=== PATIENT | male | born 1940 | race African-American/Black ===

== ENCOUNTER 2021-09-26 13:35 | Inpatient (IN) ==
[2021-09-26] MEDS ORDERED: ACETAMINOPHEN 325 MG TABLET PO PRN ×2 (13:44→13:50)
[2021-09-26] MEDS ORDERED: ONDANSETRON 4 MG/2 ML VIAL IV PRN ×2 (13:44→13:50)
[2021-09-26] MEDS ORDERED: PANTOPRAZOLE 40 MG VIAL IV STA (13:47)
[2021-09-26] MEDS ORDERED: IMMUNE GLOBULIN 10% 20 GM, IMMUNE GLOBULIN 10% 10 GM in PREMIX 1 EACH IV ONE (13:48)
[2021-09-26] MEDS ORDERED: SODIUM CHLORIDE 0.9% 1,000 ML IV PRN ×2 (13:48→16:11)
[2021-09-26] MEDS ORDERED: methylPREDNISolone SOD SUC 125 MG/2 ML VIAL IV STA (13:48)
[2021-09-26 15:00] LABS: Albumin 2.3 G/DL (3.4-5.0); Bilirubin,Total 1.1 MG/DL (0.20-1.00); Calcium 7.7 MG/DL (8.5-10.1); Osmolality,Calculated 285.5 MOS/KG (273-304); Potassium 4.4 MMOL/L (3.5-5.1); Total Protein 4.5 G/DL (6.4-8.2)
[2021-09-26] MEDS: SODIUM CHLORIDE 0.9% 1,000 ML IV SCH (15:24)
[2021-09-26] MEDS ORDERED: methylPREDNISolone SOD SUC 125 MG/2 ML VIAL IV ONE (16:20)
[2021-09-26] MEDS ORDERED: DOCUSATE SODIUM 100 MG CAPSULE PO SCH (21:00)
[2021-09-26] MEDS: DOCUSATE SODIUM 100 MG CAPSULE PO SCH (21:23)
[2021-09-27] MEDS ORDERED: methylPREDNISolone SOD SUC 125 MG/2 ML VIAL ONE (05:03)
[2021-09-27] MEDS ORDERED: methylPREDNISolone SOD SUC 125 MG/2 ML VIAL IV ONE (05:40)
[2021-09-27] MEDS: PANTOPRAZOLE 40 MG TABLET PO SCH (08:25)
[2021-09-27] MEDS: MULTIVITAMIN (CENTRUM) TABLET PO SCH (08:25)
[2021-09-27] MEDS: FERROUS SULFATE 325 MG TABLET PO SCH (08:26)
[2021-09-27] MEDS: DOCUSATE SODIUM 100 MG CAPSULE PO SCH ×2 (08:26→21:29)
[2021-09-27 16:07] LABS: Basophils % 0.1 % (0.0-0.8); Hematocrit 21.3 VOL% (42.0-52.0); Hemoglobin 6.9 GM/DL (14.0-18.0); Immature Granulocytes % 1.6 %; Immature Granulocytes Absolute 0.38 #; Lymphocytes # 4.3 10*3/uL (1.4-4.0); Lymphocytes % 18.2 % (21.2-54.2); Mean Corpuscular HGB Conc 32.4 GM/DL (32-36); Mean Corpuscular Volume 94.7 FL (87-102); NRBC # 0.05 10*3/uL; Neutrophils % 77.1 % (38.7-73.9); Red Blood Count 2.25 MC/CUMM (3.8-5.5); Red Cell Distribution Width 17.9 % (9.3-17.3); White Blood Count 23.6 T/CUMM (4-12)
[2021-09-27 16:13] LABS: Platelet Count 0 T/CUMM (130-400)
[2021-09-27 16:28] LABS: Calcium 7.6 MG/DL (8.5-10.1); Osmolality,Calculated 296.3 MOS/KG (273-304); Potassium 3.5 MMOL/L (3.5-5.1)
[2021-09-27 17:26] LABS: Lymphocytes 11 % (20-55); Segmented Neutrophils 88 % (50-85); Total Cells Counted 100
[2021-09-27 17:27] LABS: Anisocytosis 1+
[2021-09-27 17:28] LABS: Hypochromia Slight; Ovalocytes Slight
[2021-09-27 17:29] LABS: Atypical Lymphocytes Few; Platelet Estimate Decreased
[2021-09-27] MEDS: SODIUM CHLORIDE 0.9% 1,000 ML IV SCH ×3 (18:03→22:55)
[2021-09-27] MEDS: BIMATOPROST 0.01% OPH SOLN 2.5 ML BOTTLE LEFT EYE SCH ×2 (18:03→21:13)
[2021-09-27] MEDS: BRIMONIDINE 0.2% OPH SOLN 5 ML BOTTLE LEFT EYE SCH ×2 (18:03→21:13)
[2021-09-27] MEDS: DORZOLAMIDE 2% OPH SOLN 10 ML BOTTLE LEFT EYE SCH ×2 (18:04→21:12)
[2021-09-27] MEDS ORDERED: SODIUM CHLORIDE 0.9% 1,000 ML IV PRN (19:01)
[2021-09-27] MEDS ORDERED: IMMUNE GLOBULIN 10% 20 GM, IMMUNE GLOBULIN 10% 10 GM in PREMIX 1 EACH IV ONE (21:00)
[2021-09-27] MEDS: methylPREDNISolone SOD SUC 125 MG/2 ML VIAL IV SCH (21:12)
[2021-09-28] MEDS: SODIUM CHLORIDE 0.9% 1,000 ML IV SCH ×3 (07:10→22:12)
[2021-09-28 08:41] LABS: Basophils % 0.1 % (0.0-0.8); Hematocrit 24.8 VOL% (42.0-52.0); Hemoglobin 8.4 GM/DL (14.0-18.0); Immature Granulocytes Absolute 0.22 #; Lymphocytes # 5.6 10*3/uL (1.4-4.0); Lymphocytes % 24.8 % (21.2-54.2); Mean Corpuscular HGB Conc 33.9 GM/DL (32-36); Mean Corpuscular Volume 95.8 FL (87-102); Monocytes % 2.9 % (1.7-12.7); NRBC # 0.06 10*3/uL; Neutrophils % 71.2 % (38.7-73.9); Red Blood Count 2.59 MC/CUMM (3.8-5.5); Red Cell Distribution Width 16.7 % (9.3-17.3); White Blood Count 22.6 T/CUMM (4-12)
[2021-09-28 08:49] LABS: Platelet Count 1 T/CUMM (130-400)
[2021-09-28] MEDS ORDERED: predniSONE 20 MG TABLET PO SCH (09:00)
[2021-09-28] MEDS: FERROUS SULFATE 325 MG TABLET PO SCH (09:05)
[2021-09-28] MEDS: PANTOPRAZOLE 40 MG TABLET PO SCH (09:05)
[2021-09-28] MEDS: MULTIVITAMIN (CENTRUM) TABLET PO SCH (09:05)
[2021-09-28] MEDS: methylPREDNISolone SOD SUC 125 MG/2 ML VIAL IV SCH ×2 (09:05→21:34)
[2021-09-28] MEDS: DOCUSATE SODIUM 100 MG CAPSULE PO SCH ×2 (09:06→20:53)
[2021-09-28 09:11] LABS: Smudge Cells Few
[2021-09-28 09:13] LABS: Band Neutrophils 9 % (0-10); Lymphocytes 20 % (20-55); Segmented Neutrophils 68 % (50-85); Total Cells Counted 100
[2021-09-28 09:15] LABS: Anisocytosis 2+; Macrocytosis Slight; Tear Drop Cells Few
[2021-09-28] MEDS ORDERED: diphenhydrAMINE 50 MG/1 ML VIAL IV ONE (10:42)
[2021-09-28] MEDS ORDERED: FAMOTIDINE 20 MG/2 ML VIAL IV ONE (10:42)
[2021-09-28] MEDS ORDERED: ACETAMINOPHEN 325 MG TABLET PO ONE (10:43)
[2021-09-28] MEDS ORDERED: DEXAMETHASONE INJ 20 MG in SODIUM CHLORIDE 0.9% 50 ML IV ONE (10:43)
[2021-09-28] MEDS: DORZOLAMIDE 2% OPH SOLN 10 ML BOTTLE LEFT EYE SCH ×3 (10:51→21:32)
[2021-09-28] MEDS: BRIMONIDINE 0.2% OPH SOLN 5 ML BOTTLE LEFT EYE SCH ×2 (10:51→21:32)
[2021-09-28] MEDS ORDERED: riTUXimab 750 MG in SODIUM CHLORIDE 0.9% 675 ML IV ONE (13:45)
[2021-09-28] MEDS ORDERED: RITUXIMAB-ABBS 500 MG, RITUXIMAB-ABBS 250 MG in SODIUM CHLORIDE 0.9% 675 ML IV ONE (14:15)
[2021-09-28] MEDS ORDERED: SODIUM CHLORIDE 0.9% 1,000 ML IV PRN (15:20)
[2021-09-28 16:41] LABS: Hematocrit 25.3 VOL% (42.0-52.0); Hemoglobin 8.4 GM/DL (14.0-18.0); Immature Granulocytes Absolute 0.22 #; Lymphocytes # 5.4 10*3/uL (1.4-4.0); Lymphocytes % 25.2 % (21.2-54.2); Mean Corpuscular HGB Conc 33.2 GM/DL (32-36); Mean Corpuscular Volume 95.1 FL (87-102); Monocytes % 2.2 % (1.7-12.7); NRBC # 0.06 10*3/uL; Neutrophils % 71.6 % (38.7-73.9); Red Blood Count 2.66 MC/CUMM (3.8-5.5); Red Cell Distribution Width 17.1 % (9.3-17.3); White Blood Count 21.5 T/CUMM (4-12)
[2021-09-28 16:47] LABS: Platelet Count 1 T/CUMM (130-400)
[2021-09-28 19:28] LABS: Band Neutrophils 1 % (0-10); Lymphocytes 11 % (20-55); Platelet Estimate Decreased; Segmented Neutrophils 87 % (50-85); Total Cells Counted 100
[2021-09-28 19:29] LABS: Atypical Lymphocytes Few; Macrocytosis 1+; Smudge Cells Few
[2021-09-28] MEDS: BIMATOPROST 0.01% OPH SOLN 2.5 ML BOTTLE LEFT EYE SCH (21:32)
[2021-09-29] MEDS: SODIUM CHLORIDE 0.9% 1,000 ML IV SCH ×3 (05:18→22:58)
[2021-09-29 07:19] LABS: Basophils % 0.1 % (0.0-0.8); Hematocrit 20.8 VOL% (42.0-52.0); Hemoglobin 6.9 GM/DL (14.0-18.0); Immature Granulocytes Absolute 0.15 #; Lymphocytes # 2.6 10*3/uL (1.4-4.0); Lymphocytes % 17.7 % (21.2-54.2); Mean Corpuscular HGB Conc 33.2 GM/DL (32-36); Mean Corpuscular Volume 96.3 FL (87-102); Monocytes % 2.9 % (1.7-12.7); NRBC # 0.03 10*3/uL; Neutrophils % 78.3 % (38.7-73.9); Red Blood Count 2.16 MC/CUMM (3.8-5.5); Red Cell Distribution Width 17.2 % (9.3-17.3); White Blood Count 14.5 T/CUMM (4-12)
[2021-09-29 07:20] LABS: Platelet Count 0 T/CUMM (130-400)
[2021-09-29 07:46] LABS: Albumin 1.8 G/DL (3.4-5.0); Bilirubin,Total 1.3 MG/DL (0.20-1.00); Calcium 7.4 MG/DL (8.5-10.1); Osmolality,Calculated 297.7 MOS/KG (273-304); Potassium 3.8 MMOL/L (3.5-5.1); Total Protein 4.9 G/DL (6.4-8.2)
[2021-09-29 08:00] LABS: Platelet Estimate Decreased; Tear Drop Cells Few
[2021-09-29 08:01] LABS: Anisocytosis 2+; Ovalocytes Few
[2021-09-29] MEDS ORDERED: IMMUNE GLOBULIN 10% 40 GM in PREMIX 1 EACH IV ONE (10:14)
[2021-09-29] MEDS: BRIMONIDINE 0.2% OPH SOLN 5 ML BOTTLE LEFT EYE SCH ×2 (11:00→21:48)
[2021-09-29] MEDS: FERROUS SULFATE 325 MG TABLET PO SCH (11:01)
[2021-09-29] MEDS: MULTIVITAMIN (CENTRUM) TABLET PO SCH (11:01)
[2021-09-29] MEDS: IMMUNE GLOBULIN 10% 20 GM, IMMUNE GLOBULIN 10% 10 GM in PREMIX 1 EACH IV SCH (11:01)
[2021-09-29] MEDS: DOCUSATE SODIUM 100 MG CAPSULE PO SCH ×2 (11:01→21:44)
[2021-09-29] MEDS: PANTOPRAZOLE 40 MG TABLET PO SCH (11:01)
[2021-09-29] MEDS: DORZOLAMIDE 2% OPH SOLN 10 ML BOTTLE LEFT EYE SCH ×3 (11:02→21:49)
[2021-09-29] MEDS: methylPREDNISolone SOD SUC 125 MG/2 ML VIAL IV SCH ×2 (12:19→18:07)
[2021-09-29] MEDS ORDERED: ALBUTEROL/IPRATROPIUM 3 ML NEB RESP TX PRN (13:10)
[2021-09-29] MEDS: TRANEXAMIC ACID 1,000 MG in SODIUM CHLORIDE 0.9% 100 ML IV SCH ×2 (14:45→23:05)
[2021-09-29] MEDS ORDERED: SODIUM CHLORIDE 0.9% 1,000 ML IV PRN (18:05)
[2021-09-29] MEDS: AZITHROMYCIN INJ 500 MG in SODIUM CHLORIDE 0.9% 250 ML IV SCH (18:07)
[2021-09-29] MEDS: cefTRIAXone 1,000 MG in SODIUM CHLORIDE 0.9% 100 ML IV SCH (21:40)
[2021-09-29] MEDS: BIMATOPROST 0.01% OPH SOLN 2.5 ML BOTTLE LEFT EYE SCH (21:47)
[2021-09-30] MEDS: methylPREDNISolone SOD SUC 125 MG/2 ML VIAL IV SCH ×4 (04:02→18:16)
[2021-09-30] MEDS ORDERED: SODIUM CHLORIDE 0.9% 1,000 ML IV PRN (08:31)
[2021-09-30] MEDS: TRANEXAMIC ACID 1,000 MG in SODIUM CHLORIDE 0.9% 100 ML IV SCH ×2 (09:33→17:39)
[2021-09-30] MEDS: PANTOPRAZOLE 40 MG TABLET PO SCH (09:35)
[2021-09-30] MEDS: FERROUS SULFATE 325 MG TABLET PO SCH (09:35)
[2021-09-30] MEDS: DOCUSATE SODIUM 100 MG CAPSULE PO SCH ×2 (09:35→21:02)
[2021-09-30] MEDS: MULTIVITAMIN (CENTRUM) TABLET PO SCH (09:35)
[2021-09-30] MEDS: SODIUM CHLORIDE 0.9% 1,000 ML IV SCH ×2 (09:36→14:57)
[2021-09-30] MEDS: IMMUNE GLOBULIN 10% 20 GM, IMMUNE GLOBULIN 10% 10 GM in PREMIX 1 EACH IV SCH (09:41)
[2021-09-30] MEDS: BRIMONIDINE 0.2% OPH SOLN 5 ML BOTTLE LEFT EYE SCH ×2 (09:53→21:01)
[2021-09-30] MEDS: DORZOLAMIDE 2% OPH SOLN 10 ML BOTTLE LEFT EYE SCH ×3 (09:54→21:02)
[2021-09-30 11:40] LABS: Albumin 1.6 G/DL (3.4-5.0); Bilirubin,Total 0.8 MG/DL (0.20-1.00); Calcium 7.2 MG/DL (8.5-10.1); Osmolality,Calculated 299.8 MOS/KG (273-304); Total Protein 5.1 G/DL (6.4-8.2)
[2021-09-30 11:51] LABS: Basophils % 0.1 % (0.0-0.8); Hemoglobin 6.8 GM/DL (14.0-18.0); Immature Granulocytes Absolute 0.15 #; Lymphocytes # 1.4 10*3/uL (1.4-4.0); Lymphocytes % 9.5 % (21.2-54.2); Mean Corpuscular HGB Conc 32.4 GM/DL (32-36); Monocytes % 1.7 % (1.7-12.7); NRBC # 0.04 10*3/uL; Neutrophils % 87.7 % (38.7-73.9); Red Blood Count 2.21 MC/CUMM (3.8-5.5); Red Cell Distribution Width 17.2 % (9.3-17.3); White Blood Count 14.7 T/CUMM (4-12)
[2021-09-30 11:55] LABS: Platelet Count 1 T/CUMM (130-400)
[2021-09-30 12:32] LABS: Anisocytosis 1+; Band Neutrophils 1 % (0-10); Hypochromia Slight; Lymphocytes 4 % (20-55); Metamyelocytes 1 %; Microcytosis 1+; Ovalocytes Slight; Segmented Neutrophils 93 % (50-85); Total Cells Counted 100
[2021-09-30 12:33] LABS: Platelet Estimate Decreased; Spherocytes Slight
[2021-09-30] MEDS: AZITHROMYCIN INJ 500 MG in SODIUM CHLORIDE 0.9% 250 ML IV SCH (17:08)
[2021-09-30] MEDS: cefTRIAXone 1,000 MG in SODIUM CHLORIDE 0.9% 100 ML IV SCH (21:01)
[2021-09-30] MEDS: BIMATOPROST 0.01% OPH SOLN 2.5 ML BOTTLE LEFT EYE SCH (21:02)
[2021-10-01] MEDS: TRANEXAMIC ACID 1,000 MG in SODIUM CHLORIDE 0.9% 100 ML IV SCH ×3 (02:29→19:43)
[2021-10-01] MEDS: methylPREDNISolone SOD SUC 125 MG/2 ML VIAL IV SCH ×3 (02:32→20:38)
[2021-10-01] MEDS ORDERED: cloNIDine 0.1 MG TABLET PO ONE (05:40)
[2021-10-01] MEDS ORDERED: amLODIPine 5 MG TABLET PO ONE (06:57)
[2021-10-01 07:59] LABS: Basophils % 0.1 % (0.0-0.8); Hematocrit 29.5 VOL% (42.0-52.0); Immature Granulocytes % 1.1 %; Immature Granulocytes Absolute 0.16 #; Lymphocytes # 2.5 10*3/uL (1.4-4.0); Lymphocytes % 17.2 % (21.2-54.2); Mean Corpuscular HGB Conc 32.9 GM/DL (32-36); Mean Corpuscular Volume 92.8 FL (87-102); NRBC # 0.05 10*3/uL; Neutrophils % 77.6 % (38.7-73.9); Red Cell Distribution Width 15.9 % (9.3-17.3); White Blood Count 14.6 T/CUMM (4-12)
[2021-10-01 08:01] LABS: Red Blood Count 3.18 MC/CUMM (3.8-5.5)
[2021-10-01 08:02] LABS: Hemoglobin 9.7 GM/DL (14.0-18.0)
[2021-10-01 08:03] LABS: Platelet Count 1 T/CUMM (130-400)
[2021-10-01 08:17] LABS: Albumin 1.7 G/DL (3.4-5.0); Bilirubin,Total 0.8 MG/DL (0.20-1.00); Calcium 7.6 MG/DL (8.5-10.1); Potassium 3.7 MMOL/L (3.5-5.1); Total Protein 5.8 G/DL (6.4-8.2)
[2021-10-01 08:31] LABS: Hypochromia 1+; Microcytosis 1+; Platelet Estimate Decreased
[2021-10-01] MEDS ORDERED: romiPLOStim 125 MCG VIAL SUBCUT ONE (09:00)
[2021-10-01] MEDS: MULTIVITAMIN (CENTRUM) TABLET PO SCH (09:23)
[2021-10-01] MEDS: SODIUM CHLORIDE 0.9% 1,000 ML IV SCH ×3 (09:23→19:34)
[2021-10-01] MEDS: PANTOPRAZOLE 40 MG TABLET PO SCH (09:23)
[2021-10-01] MEDS: FERROUS SULFATE 325 MG TABLET PO SCH (09:23)
[2021-10-01] MEDS: BRIMONIDINE 0.2% OPH SOLN 5 ML BOTTLE LEFT EYE SCH ×2 (09:24→20:40)
[2021-10-01] MEDS: DORZOLAMIDE 2% OPH SOLN 10 ML BOTTLE LEFT EYE SCH ×3 (09:25→20:40)
[2021-10-01] MEDS: DOCUSATE SODIUM 100 MG CAPSULE PO SCH ×2 (09:25→20:33)
[2021-10-01] MEDS: AZITHROMYCIN INJ 500 MG in SODIUM CHLORIDE 0.9% 250 ML IV SCH (17:34)
[2021-10-01] MEDS: BIMATOPROST 0.01% OPH SOLN 2.5 ML BOTTLE LEFT EYE SCH (20:39)
[2021-10-01] MEDS: cefTRIAXone 1,000 MG in SODIUM CHLORIDE 0.9% 100 ML IV SCH (20:40)
[2021-10-02] MEDS: methylPREDNISolone SOD SUC 125 MG/2 ML VIAL IV SCH ×3 (02:34→20:30)
[2021-10-02] MEDS: SODIUM CHLORIDE 0.9% 1,000 ML IV SCH ×4 (03:54→20:26)
[2021-10-02] MEDS: TRANEXAMIC ACID 1,000 MG in SODIUM CHLORIDE 0.9% 100 ML IV SCH ×2 (05:11→13:11)
[2021-10-02 05:38] LABS: Basophils % 0.1 % (0.0-0.8); Hematocrit 32.5 VOL% (42.0-52.0); Hemoglobin 10.7 GM/DL (14.0-18.0); Immature Granulocytes % 1.2 %; Immature Granulocytes Absolute 0.15 #; Lymphocytes # 2.9 10*3/uL (1.4-4.0); Lymphocytes % 23.9 % (21.2-54.2); Mean Corpuscular HGB Conc 32.9 GM/DL (32-36); Mean Corpuscular Volume 94.2 FL (87-102); Monocytes % 2.7 % (1.7-12.7); NRBC # 0.08 10*3/uL; Neutrophils % 72.1 % (38.7-73.9); Red Blood Count 3.45 MC/CUMM (3.8-5.5); Red Cell Distribution Width 16.1 % (9.3-17.3)
[2021-10-02 05:49] LABS: Platelet Count 1 T/CUMM (130-400)
[2021-10-02 05:57] LABS: Hypochromia 1+; Microcytosis 1+; Ovalocytes Slight; Tear Drop Cells Slight
[2021-10-02 05:58] LABS: Platelet Estimate Decreased
[2021-10-02 06:00] LABS: Albumin 1.9 G/DL (3.4-5.0); Bilirubin,Total 1.2 MG/DL (0.20-1.00); Calcium 7.4 MG/DL (8.5-10.1); Osmolality,Calculated 293.8 MOS/KG (273-304); Potassium 3.8 MMOL/L (3.5-5.1); Total Protein 5.7 G/DL (6.4-8.2)
[2021-10-02] MEDS: FERROUS SULFATE 325 MG TABLET PO SCH (09:29)
[2021-10-02] MEDS: PANTOPRAZOLE 40 MG TABLET PO SCH (09:29)
[2021-10-02] MEDS: MULTIVITAMIN (CENTRUM) TABLET PO SCH (09:29)
[2021-10-02] MEDS: BRIMONIDINE 0.2% OPH SOLN 5 ML BOTTLE LEFT EYE SCH ×2 (09:30→20:32)
[2021-10-02] MEDS: DOCUSATE SODIUM 100 MG CAPSULE PO SCH ×2 (09:30→20:28)
[2021-10-02] MEDS: DORZOLAMIDE 2% OPH SOLN 10 ML BOTTLE LEFT EYE SCH ×3 (10:33→20:32)
[2021-10-02] MEDS: AZITHROMYCIN INJ 500 MG in SODIUM CHLORIDE 0.9% 250 ML IV SCH (17:11)
[2021-10-02] MEDS: cefTRIAXone 1,000 MG in SODIUM CHLORIDE 0.9% 100 ML IV SCH (20:31)
[2021-10-02] MEDS: BIMATOPROST 0.01% OPH SOLN 2.5 ML BOTTLE LEFT EYE SCH (20:32)
[2021-10-03] MEDS: TRANEXAMIC ACID 1,000 MG in SODIUM CHLORIDE 0.9% 100 ML IV SCH ×4 (00:45→20:17)
[2021-10-03] MEDS: SODIUM CHLORIDE 0.9% 1,000 ML IV SCH ×3 (04:36→20:54)
[2021-10-03] MEDS: methylPREDNISolone SOD SUC 125 MG/2 ML VIAL IV SCH ×3 (04:45→20:20)
[2021-10-03 05:41] LABS: Albumin 1.6 G/DL (3.4-5.0); Bilirubin,Total 0.8 MG/DL (0.20-1.00); Calcium 7.6 MG/DL (8.5-10.1); Potassium 3.5 MMOL/L (3.5-5.1); Total Protein 5.2 G/DL (6.4-8.2)
[2021-10-03 06:39] LABS: Basophils % 0.1 % (0.0-0.8); Hematocrit 32.1 VOL% (42.0-52.0); Hemoglobin 10.9 GM/DL (14.0-18.0); Immature Granulocytes Absolute 0.19 #; Lymphocytes # 2.6 10*3/uL (1.4-4.0); Lymphocytes % 27.4 % (21.2-54.2); Mean Corpuscular Volume 91.2 FL (87-102); Monocytes % 5.1 % (1.7-12.7); NRBC # 0.08 10*3/uL; Neutrophils % 65.4 % (38.7-73.9); Red Blood Count 3.52 MC/CUMM (3.8-5.5); Red Cell Distribution Width 16.4 % (9.3-17.3); White Blood Count 9.4 T/CUMM (4-12)
[2021-10-03 06:45] LABS: Platelet Count 1 T/CUMM (130-400)
[2021-10-03 06:56] LABS: Platelet Estimate Decreased
[2021-10-03] MEDS ORDERED: IMMUNE GLOBULIN 10% 20 GM, IMMUNE GLOBULIN 10% 10 GM in PREMIX 1 EACH IV ONE ×2 (08:24→09:00)
[2021-10-03] MEDS: PANTOPRAZOLE 40 MG TABLET PO SCH (10:37)
[2021-10-03] MEDS: MULTIVITAMIN (CENTRUM) TABLET PO SCH (10:38)
[2021-10-03] MEDS: FLUCONAZOLE 100 MG TABLET PO SCH (10:38)
[2021-10-03] MEDS: FERROUS SULFATE 325 MG TABLET PO SCH (10:38)
[2021-10-03] MEDS: DORZOLAMIDE 2% OPH SOLN 10 ML BOTTLE LEFT EYE SCH ×3 (11:43→20:16)
[2021-10-03] MEDS: BRIMONIDINE 0.2% OPH SOLN 5 ML BOTTLE LEFT EYE SCH ×2 (11:43→20:16)
[2021-10-03] MEDS: AZITHROMYCIN INJ 500 MG in SODIUM CHLORIDE 0.9% 250 ML IV SCH (17:30)
[2021-10-03] MEDS: BIMATOPROST 0.01% OPH SOLN 2.5 ML BOTTLE LEFT EYE SCH (20:16)
[2021-10-03] MEDS: cefTRIAXone 1,000 MG in SODIUM CHLORIDE 0.9% 100 ML IV SCH (20:20)
[2021-10-04] MEDS: SODIUM CHLORIDE 0.9% 1,000 ML IV SCH ×2 (04:04→16:10)
[2021-10-04] MEDS: TRANEXAMIC ACID 1,000 MG in SODIUM CHLORIDE 0.9% 100 ML IV SCH ×3 (04:06→20:25)
[2021-10-04] MEDS: methylPREDNISolone SOD SUC 125 MG/2 ML VIAL IV SCH ×3 (04:07→20:25)
[2021-10-04 07:01] LABS: Basophils % 0.1 % (0.0-0.8); Hemoglobin 10.5 GM/DL (14.0-18.0); Immature Granulocytes % 2.2 %; Lymphocytes # 2.6 10*3/uL (1.4-4.0); Lymphocytes % 28.2 % (21.2-54.2); Mean Corpuscular HGB Conc 31.8 GM/DL (32-36); Mean Corpuscular Volume 95.4 FL (87-102); Monocytes % 3.8 % (1.7-12.7); NRBC # 0.08 10*3/uL; Neutrophils % 65.7 % (38.7-73.9); Red Blood Count 3.46 MC/CUMM (3.8-5.5); Red Cell Distribution Width 16.2 % (9.3-17.3); White Blood Count 9.3 T/CUMM (4-12)
[2021-10-04 07:08] LABS: Albumin 1.7 G/DL (3.4-5.0); Calcium 7.5 MG/DL (8.5-10.1); Osmolality,Calculated 291.1 MOS/KG (273-304); Total Protein 5.6 G/DL (6.4-8.2)
[2021-10-04 07:16] LABS: Platelet Count 2 T/CUMM (130-400)
[2021-10-04 07:20] LABS: Platelet Estimate Decreased
[2021-10-04 07:21] LABS: Hypochromia Slight
[2021-10-04] MEDS: FLUCONAZOLE 100 MG TABLET PO SCH (09:38)
[2021-10-04] MEDS: MULTIVITAMIN (CENTRUM) TABLET PO SCH (09:38)
[2021-10-04] MEDS: PANTOPRAZOLE 40 MG TABLET PO SCH (09:39)
[2021-10-04] MEDS: hydroCHLOROthiazide 12.5 MG CAPSULE PO SCH (09:39)
[2021-10-04] MEDS: FERROUS SULFATE 325 MG TABLET PO SCH (09:39)
[2021-10-04] MEDS: BRIMONIDINE 0.2% OPH SOLN 5 ML BOTTLE LEFT EYE SCH ×2 (09:39→20:25)
[2021-10-04] MEDS: amLODIPine 5 MG TABLET PO SCH (09:39)
[2021-10-04] MEDS: DORZOLAMIDE 2% OPH SOLN 10 ML BOTTLE LEFT EYE SCH ×3 (09:39→20:26)
[2021-10-04] MEDS: CLOTRIMAZOLE 10 MG TROCHE PO SCH ×2 (16:19→20:25)
[2021-10-04] MEDS: BIMATOPROST 0.01% OPH SOLN 2.5 ML BOTTLE LEFT EYE SCH (20:25)
[2021-10-05] MEDS: TRANEXAMIC ACID 1,000 MG in SODIUM CHLORIDE 0.9% 100 ML IV SCH ×3 (03:14→21:19)
[2021-10-05] MEDS: methylPREDNISolone SOD SUC 125 MG/2 ML VIAL IV SCH ×3 (06:27→21:19)
[2021-10-05 06:42] LABS: Basophils % 0.2 % (0.0-0.8); Hemoglobin 10.9 GM/DL (14.0-18.0); Immature Granulocytes % 2.3 %; Immature Granulocytes Absolute 0.21 #; Lymphocytes # 2.5 10*3/uL (1.4-4.0); Lymphocytes % 27.1 % (21.2-54.2); Mean Corpuscular HGB Conc 31.1 GM/DL (32-36); Mean Corpuscular Volume 99.4 FL (87-102); Monocytes % 3.7 % (1.7-12.7); NRBC # 0.08 10*3/uL; Neutrophils % 66.7 % (38.7-73.9); Red Blood Count 3.52 MC/CUMM (3.8-5.5); Red Cell Distribution Width 16.7 % (9.3-17.3)
[2021-10-05 06:53] LABS: Platelet Count 5 T/CUMM (130-400)
[2021-10-05 07:03] LABS: Platelet Estimate Decreased
[2021-10-05 07:08] LABS: Albumin 1.7 G/DL (3.4-5.0); Calcium 7.6 MG/DL (8.5-10.1); Osmolality,Calculated 292.1 MOS/KG (273-304); Potassium 3.4 MMOL/L (3.5-5.1); Total Protein 5.3 G/DL (6.4-8.2)
[2021-10-05] MEDS: MULTIVITAMIN (CENTRUM) TABLET PO SCH (09:09)
[2021-10-05] MEDS: CLOTRIMAZOLE 10 MG TROCHE PO SCH ×3 (09:09→21:20)
[2021-10-05] MEDS: DORZOLAMIDE 2% OPH SOLN 10 ML BOTTLE LEFT EYE SCH ×3 (09:09→21:22)
[2021-10-05] MEDS: FERROUS SULFATE 325 MG TABLET PO SCH (09:09)
[2021-10-05] MEDS: BRIMONIDINE 0.2% OPH SOLN 5 ML BOTTLE LEFT EYE SCH ×2 (09:09→21:21)
[2021-10-05] MEDS: hydroCHLOROthiazide 12.5 MG CAPSULE PO SCH (09:09)
[2021-10-05] MEDS: PANTOPRAZOLE 40 MG TABLET PO SCH (09:09)
[2021-10-05] MEDS: amLODIPine 5 MG TABLET PO SCH (09:09)
[2021-10-05] MEDS: FLUCONAZOLE 100 MG TABLET PO SCH (09:09)
[2021-10-05] MEDS: SODIUM CHLORIDE 0.9% 1,000 ML IV SCH (11:45)
[2021-10-05] MEDS: POTASSIUM CHLORIDE 20 MEQ TABLET PO PRN ×2 (11:53→16:48)
[2021-10-05] MEDS: BIMATOPROST 0.01% OPH SOLN 2.5 ML BOTTLE LEFT EYE SCH (21:22)
[2021-10-06] MEDS: TRANEXAMIC ACID 1,000 MG in SODIUM CHLORIDE 0.9% 100 ML IV SCH ×3 (05:04→21:00)
[2021-10-06] MEDS: methylPREDNISolone SOD SUC 125 MG/2 ML VIAL IV SCH ×3 (05:05→20:59)
[2021-10-06 06:00] LABS: Basophils % 0.2 % (0.0-0.8); Hemoglobin 10.9 GM/DL (14.0-18.0); Immature Granulocytes % 2.7 %; Immature Granulocytes Absolute 0.27 #; Lymphocytes # 2.5 10*3/uL (1.4-4.0); Lymphocytes % 24.9 % (21.2-54.2); Mean Corpuscular HGB Conc 32.1 GM/DL (32-36); Monocytes % 3.1 % (1.7-12.7); NRBC # 0.08 10*3/uL; Neutrophils % 69.1 % (38.7-73.9); Red Blood Count 3.54 MC/CUMM (3.8-5.5); Red Cell Distribution Width 16.6 % (9.3-17.3); White Blood Count 10.1 T/CUMM (4-12)
[2021-10-06 06:25] LABS: Platelet Count 1 T/CUMM (130-400)
[2021-10-06 06:29] LABS: Albumin 1.8 G/DL (3.4-5.0); Bilirubin,Total 0.9 MG/DL (0.20-1.00); Calcium 8.2 MG/DL (8.5-10.1); Osmolality,Calculated 294.3 MOS/KG (273-304); Potassium 4.2 MMOL/L (3.5-5.1); Total Protein 5.5 G/DL (6.4-8.2)
[2021-10-06 06:58] LABS: Hypochromia Slight; Microcytosis 1+; Ovalocytes Slight; Platelet Estimate Decreased
[2021-10-06] MEDS: DORZOLAMIDE 2% OPH SOLN 10 ML BOTTLE LEFT EYE SCH ×3 (09:27→21:00)
[2021-10-06] MEDS: FUROSEMIDE 40 MG TABLET PO SCH (09:27)
[2021-10-06] MEDS: amLODIPine 5 MG TABLET PO SCH (09:27)
[2021-10-06] MEDS: hydroCHLOROthiazide 12.5 MG CAPSULE PO SCH (09:27)
[2021-10-06] MEDS: FERROUS SULFATE 325 MG TABLET PO SCH (09:27)
[2021-10-06] MEDS: CLOTRIMAZOLE 10 MG TROCHE PO SCH ×3 (09:27→21:00)
[2021-10-06] MEDS: BRIMONIDINE 0.2% OPH SOLN 5 ML BOTTLE LEFT EYE SCH ×2 (09:27→20:59)
[2021-10-06] MEDS: MULTIVITAMIN (CENTRUM) TABLET PO SCH (09:27)
[2021-10-06] MEDS: FLUCONAZOLE 100 MG TABLET PO SCH (09:27)
[2021-10-06] MEDS: PANTOPRAZOLE 40 MG TABLET PO SCH (09:27)
[2021-10-06] MEDS: BIMATOPROST 0.01% OPH SOLN 2.5 ML BOTTLE LEFT EYE SCH (20:59)
[2021-10-06] MEDS: SODIUM CHLORIDE 0.9% 1,000 ML IV SCH (21:00)
[2021-10-07] MEDS: TRANEXAMIC ACID 1,000 MG in SODIUM CHLORIDE 0.9% 100 ML IV SCH ×3 (05:13→22:29)
[2021-10-07] MEDS: methylPREDNISolone SOD SUC 125 MG/2 ML VIAL IV SCH ×3 (05:14→21:17)
[2021-10-07 06:33] LABS: Hematocrit 29.6 VOL% (42.0-52.0); Hemoglobin 9.7 GM/DL (14.0-18.0); Immature Granulocytes % 2.1 %; Immature Granulocytes Absolute 0.17 #; Lymphocytes # 2.1 10*3/uL (1.4-4.0); Lymphocytes % 24.9 % (21.2-54.2); Mean Corpuscular HGB Conc 32.8 GM/DL (32-36); Monocytes % 3.8 % (1.7-12.7); NRBC # 0.05 10*3/uL; Neutrophils % 69.2 % (38.7-73.9); Red Blood Count 3.15 MC/CUMM (3.8-5.5); Red Cell Distribution Width 16.5 % (9.3-17.3); White Blood Count 8.2 T/CUMM (4-12)
[2021-10-07 06:41] LABS: Platelet Count 1 T/CUMM (130-400)
[2021-10-07 06:49] LABS: Albumin 1.7 G/DL (3.4-5.0); Osmolality,Calculated 292.1 MOS/KG (273-304); Total Protein 4.8 G/DL (6.4-8.2)
[2021-10-07 06:55] LABS: Hypochromia 1+; Microcytosis 1+; Platelet Estimate Decreased
[2021-10-07] MEDS: FERROUS SULFATE 325 MG TABLET PO SCH (09:43)
[2021-10-07] MEDS: CLOTRIMAZOLE 10 MG TROCHE PO SCH ×3 (09:43→21:05)
[2021-10-07] MEDS: MULTIVITAMIN (CENTRUM) TABLET PO SCH (09:43)
[2021-10-07] MEDS: amLODIPine 5 MG TABLET PO SCH (09:43)
[2021-10-07] MEDS: PANTOPRAZOLE 40 MG TABLET PO SCH (09:43)
[2021-10-07] MEDS: hydroCHLOROthiazide 12.5 MG CAPSULE PO SCH (09:43)
[2021-10-07] MEDS: FUROSEMIDE 40 MG TABLET PO SCH (09:44)
[2021-10-07] MEDS: BRIMONIDINE 0.2% OPH SOLN 5 ML BOTTLE LEFT EYE SCH ×2 (09:44→21:05)
[2021-10-07] MEDS: FLUCONAZOLE 100 MG TABLET PO SCH (09:44)
[2021-10-07] MEDS: DORZOLAMIDE 2% OPH SOLN 10 ML BOTTLE LEFT EYE SCH ×3 (09:45→21:05)
[2021-10-07] MEDS ORDERED: IMMUNE GLOBULIN 10% 20 GM, IMMUNE GLOBULIN 10% 10 GM in PREMIX 1 EACH IV ONE (13:20)
[2021-10-07] MEDS: BIMATOPROST 0.01% OPH SOLN 2.5 ML BOTTLE LEFT EYE SCH (21:05)
[2021-10-08] MEDS: methylPREDNISolone SOD SUC 125 MG/2 ML VIAL IV SCH ×3 (04:51→21:03)
[2021-10-08 04:59] LABS: Hematocrit 28.4 VOL% (42.0-52.0); Hemoglobin 9.2 GM/DL (14.0-18.0); Immature Granulocytes % 1.3 %; Lymphocytes # 1.9 10*3/uL (1.4-4.0); Lymphocytes % 24.2 % (21.2-54.2); Mean Corpuscular HGB Conc 32.4 GM/DL (32-36); Mean Corpuscular Volume 95.6 FL (87-102); Monocytes % 3.3 % (1.7-12.7); NRBC # 0.03 10*3/uL; Neutrophils % 71.2 % (38.7-73.9); Red Blood Count 2.97 MC/CUMM (3.8-5.5); Red Cell Distribution Width 16.5 % (9.3-17.3); White Blood Count 7.9 T/CUMM (4-12)
[2021-10-08 05:03] LABS: Platelet Count 1 T/CUMM (130-400)
[2021-10-08 05:20] LABS: Anisocytosis 1+; Hypochromia 1+; Microcytosis 1+; Tear Drop Cells Slight
[2021-10-08 05:21] LABS: Albumin 1.5 G/DL (3.4-5.0); Bilirubin,Total 1.8 MG/DL (0.20-1.00); Calcium 7.6 MG/DL (8.5-10.1); Osmolality,Calculated 294.1 MOS/KG (273-304); Ovalocytes Slight; Platelet Estimate Decreased; Potassium 3.7 MMOL/L (3.5-5.1); Total Protein 5.2 G/DL (6.4-8.2)
[2021-10-08] MEDS ORDERED: FERRIC GLUCONATE COMPLEX 250 MG in SODIUM CHLORIDE 0.9% 100 ML IV ONE (09:00)
[2021-10-08] MEDS ORDERED: diphenhydrAMINE CAP 25 MG CAPSULE PO ONE (09:06)
[2021-10-08] MEDS ORDERED: methylPREDNISolone SOD SUC 125 MG/2 ML VIAL IV ONE (09:07)
[2021-10-08] MEDS: FERROUS SULFATE 325 MG TABLET PO SCH (09:45)
[2021-10-08] MEDS: PANTOPRAZOLE 40 MG TABLET PO SCH (09:45)
[2021-10-08] MEDS: CLOTRIMAZOLE 10 MG TROCHE PO SCH ×3 (09:45→21:00)
[2021-10-08] MEDS: hydroCHLOROthiazide 12.5 MG CAPSULE PO SCH (09:45)
[2021-10-08] MEDS: TRANEXAMIC ACID 1,000 MG in SODIUM CHLORIDE 0.9% 100 ML IV SCH ×2 (09:45→17:14)
[2021-10-08] MEDS: amLODIPine 5 MG TABLET PO SCH (09:45)
[2021-10-08] MEDS: MULTIVITAMIN (CENTRUM) TABLET PO SCH (09:46)
[2021-10-08] MEDS: FUROSEMIDE 40 MG TABLET PO SCH (09:46)
[2021-10-08] MEDS: FLUCONAZOLE 100 MG TABLET PO SCH (09:48)
[2021-10-08] MEDS: DORZOLAMIDE 2% OPH SOLN 10 ML BOTTLE LEFT EYE SCH ×3 (09:55→21:01)
[2021-10-08] MEDS: BRIMONIDINE 0.2% OPH SOLN 5 ML BOTTLE LEFT EYE SCH ×2 (09:55→21:00)
[2021-10-08] MEDS: CHOLESTYRAMINE 4 GM PACK PO SCH ×2 (11:06→21:00)
[2021-10-08] MEDS: SODIUM CHLORIDE 0.9% 1,000 ML IV SCH (11:06)
[2021-10-08] MEDS: VANCOMYCIN 50 MG/ML 60 ML/BOTTLE PO SCH ×2 (14:10→21:03)
[2021-10-08] MEDS: BIMATOPROST 0.01% OPH SOLN 2.5 ML BOTTLE LEFT EYE SCH (21:00)
[2021-10-09] MEDS: TRANEXAMIC ACID 1,000 MG in SODIUM CHLORIDE 0.9% 100 ML IV SCH ×3 (02:11→20:43)
[2021-10-09 04:19] LABS: Basophils % 0.1 % (0.0-0.8); Hematocrit 30.9 VOL% (42.0-52.0); Immature Granulocytes % 1.2 %; Immature Granulocytes Absolute 0.11 #; Lymphocytes # 1.9 10*3/uL (1.4-4.0); Lymphocytes % 21.7 % (21.2-54.2); Mean Corpuscular HGB Conc 32.4 GM/DL (32-36); Mean Corpuscular Volume 95.7 FL (87-102); Monocytes % 3.7 % (1.7-12.7); NRBC # 0.02 10*3/uL; Neutrophils % 73.3 % (38.7-73.9); Red Blood Count 3.23 MC/CUMM (3.8-5.5); Red Cell Distribution Width 16.7 % (9.3-17.3); White Blood Count 8.9 T/CUMM (4-12)
[2021-10-09 04:25] LABS: Platelet Count 5 T/CUMM (130-400)
[2021-10-09 04:42] LABS: Albumin 1.5 G/DL (3.4-5.0); Bilirubin,Total 1.6 MG/DL (0.20-1.00); Calcium 7.6 MG/DL (8.5-10.1); Potassium 3.8 MMOL/L (3.5-5.1); Total Protein 5.1 G/DL (6.4-8.2)
[2021-10-09 04:49] LABS: Hypochromia 1+; Microcytosis 1+; Ovalocytes Slight
[2021-10-09 04:50] LABS: Platelet Estimate Decreased
[2021-10-09] MEDS: VANCOMYCIN 50 MG/ML 60 ML/BOTTLE PO SCH ×4 (05:32→22:28)
[2021-10-09] MEDS: methylPREDNISolone SOD SUC 125 MG/2 ML VIAL IV SCH ×3 (05:35→20:47)
[2021-10-09] MEDS: hydroCHLOROthiazide 12.5 MG CAPSULE PO SCH (08:35)
[2021-10-09] MEDS: FLUCONAZOLE 100 MG TABLET PO SCH (08:35)
[2021-10-09] MEDS: PANTOPRAZOLE 40 MG TABLET PO SCH (08:35)
[2021-10-09] MEDS: FUROSEMIDE 40 MG TABLET PO SCH (08:35)
[2021-10-09] MEDS: BRIMONIDINE 0.2% OPH SOLN 5 ML BOTTLE LEFT EYE SCH ×2 (08:35→20:42)
[2021-10-09] MEDS: MULTIVITAMIN (CENTRUM) TABLET PO SCH (08:35)
[2021-10-09] MEDS: CLOTRIMAZOLE 10 MG TROCHE PO SCH ×3 (08:35→20:42)
[2021-10-09] MEDS: DORZOLAMIDE 2% OPH SOLN 10 ML BOTTLE LEFT EYE SCH ×3 (08:35→20:43)
[2021-10-09] MEDS: FERROUS SULFATE 325 MG TABLET PO SCH (08:35)
[2021-10-09] MEDS: amLODIPine 5 MG TABLET PO SCH (08:35)
[2021-10-09] MEDS: SODIUM CHLORIDE 0.9% 1,000 ML IV SCH (09:23)
[2021-10-09] MEDS: CHOLESTYRAMINE 4 GM PACK PO SCH ×3 (10:46→22:27)
[2021-10-09] MEDS: BIMATOPROST 0.01% OPH SOLN 2.5 ML BOTTLE LEFT EYE SCH (20:43)
[2021-10-10] MEDS: TRANEXAMIC ACID 1,000 MG in SODIUM CHLORIDE 0.9% 100 ML IV SCH ×2 (04:53→14:09)
[2021-10-10] MEDS: methylPREDNISolone SOD SUC 125 MG/2 ML VIAL IV SCH ×3 (04:54→22:57)
[2021-10-10] MEDS: VANCOMYCIN 50 MG/ML 60 ML/BOTTLE PO SCH ×3 (05:00→22:59)
[2021-10-10 05:29] LABS: Hematocrit 29.2 VOL% (42.0-52.0); Hemoglobin 9.3 GM/DL (14.0-18.0); Immature Granulocytes % 0.9 %; Immature Granulocytes Absolute 0.08 #; Lymphocytes # 1.5 10*3/uL (1.4-4.0); Lymphocytes % 15.8 % (21.2-54.2); Mean Corpuscular HGB Conc 31.8 GM/DL (32-36); Mean Corpuscular Volume 96.4 FL (87-102); Monocytes % 4.7 % (1.7-12.7); NRBC # 0.02 10*3/uL; Neutrophils % 78.6 % (38.7-73.9); Red Blood Count 3.03 MC/CUMM (3.8-5.5); Red Cell Distribution Width 17.2 % (9.3-17.3); White Blood Count 9.3 T/CUMM (4-12)
[2021-10-10 05:32] LABS: Platelet Count 2 T/CUMM (130-400)
[2021-10-10 05:52] LABS: Albumin 1.5 G/DL (3.4-5.0); Bilirubin,Total 0.7 MG/DL (0.20-1.00); Hypochromia Slight; Microcytosis 1+; Osmolality,Calculated 296.3 MOS/KG (273-304); Potassium 4.1 MMOL/L (3.5-5.1); Tear Drop Cells Slight; Total Protein 4.8 G/DL (6.4-8.2)
[2021-10-10 05:53] LABS: Ovalocytes Slight; Platelet Estimate Decreased
[2021-10-10] MEDS ORDERED: DEXTROSE 10% 25 GM/250 ML BAG IV PRN (06:59)
[2021-10-10] MEDS ORDERED: GLUCAGON 1 MG VIAL IM PRN (06:59)
[2021-10-10] MEDS ORDERED: FUROSEMIDE 40 MG/4 ML VIAL IV ONE (07:21)
[2021-10-10] MEDS: hydroCHLOROthiazide 12.5 MG CAPSULE PO SCH (08:53)
[2021-10-10] MEDS: PANTOPRAZOLE 40 MG TABLET PO SCH (08:53)
[2021-10-10] MEDS: CLOTRIMAZOLE 10 MG TROCHE PO SCH ×3 (08:53→22:57)
[2021-10-10] MEDS: INSULIN LISPRO 100 UNIT/ML SUBCUT SCH ×4 (08:53→22:58)
[2021-10-10] MEDS: BRIMONIDINE 0.2% OPH SOLN 5 ML BOTTLE LEFT EYE SCH ×2 (08:54→22:55)
[2021-10-10] MEDS: DORZOLAMIDE 2% OPH SOLN 10 ML BOTTLE LEFT EYE SCH ×3 (08:54→22:56)
[2021-10-10] MEDS: amLODIPine 5 MG TABLET PO SCH (08:54)
[2021-10-10] MEDS: FUROSEMIDE 40 MG TABLET PO SCH (08:54)
[2021-10-10] MEDS: FERROUS SULFATE 325 MG TABLET PO SCH (08:54)
[2021-10-10] MEDS: MULTIVITAMIN (CENTRUM) TABLET PO SCH (08:54)
[2021-10-10] MEDS: CHOLESTYRAMINE 4 GM PACK PO SCH ×2 (10:19→22:58)
[2021-10-10] MEDS: SODIUM CHLORIDE 0.9% 1,000 ML IV SCH (14:09)
[2021-10-10] MEDS: BIMATOPROST 0.01% OPH SOLN 2.5 ML BOTTLE LEFT EYE SCH (22:55)
[2021-10-11] MEDS: TRANEXAMIC ACID 1,000 MG in SODIUM CHLORIDE 0.9% 100 ML IV SCH ×4 (02:05→20:50)
[2021-10-11] MEDS ORDERED: FUROSEMIDE 40 MG/4 ML VIAL IV ONE (05:42)
[2021-10-11] MEDS: methylPREDNISolone SOD SUC 125 MG/2 ML VIAL IV SCH (06:42)
[2021-10-11] MEDS: VANCOMYCIN 50 MG/ML 60 ML/BOTTLE PO SCH ×3 (06:52→22:12)
[2021-10-11] MEDS: PANTOPRAZOLE 40 MG TABLET PO SCH (09:25)
[2021-10-11] MEDS: MULTIVITAMIN (CENTRUM) TABLET PO SCH (09:25)
[2021-10-11] MEDS: FUROSEMIDE 40 MG TABLET PO SCH (09:25)
[2021-10-11] MEDS: amLODIPine 5 MG TABLET PO SCH (09:25)
[2021-10-11] MEDS: CHOLESTYRAMINE 4 GM PACK PO SCH ×2 (09:26→21:02)
[2021-10-11] MEDS: FERROUS SULFATE 325 MG TABLET PO SCH (09:26)
[2021-10-11] MEDS: CLOTRIMAZOLE 10 MG TROCHE PO SCH ×3 (09:26→20:54)
[2021-10-11] MEDS: hydroCHLOROthiazide 12.5 MG CAPSULE PO SCH (09:26)
[2021-10-11] MEDS: DORZOLAMIDE 2% OPH SOLN 10 ML BOTTLE LEFT EYE SCH ×3 (09:28→20:55)
[2021-10-11] MEDS: BRIMONIDINE 0.2% OPH SOLN 5 ML BOTTLE LEFT EYE SCH ×2 (09:28→20:55)
[2021-10-11 10:54] LABS: Hematocrit 29.5 VOL% (42.0-52.0); Hemoglobin 9.6 GM/DL (14.0-18.0); Immature Granulocytes % 0.9 %; Immature Granulocytes Absolute 0.09 #; Lymphocytes # 1.1 10*3/uL (1.4-4.0); Lymphocytes % 11.5 % (21.2-54.2); Mean Corpuscular HGB Conc 32.5 GM/DL (32-36); Mean Corpuscular Volume 96.1 FL (87-102); Monocytes % 4.2 % (1.7-12.7); Neutrophils % 83.4 % (38.7-73.9); Red Blood Count 3.07 MC/CUMM (3.8-5.5); Red Cell Distribution Width 17.5 % (9.3-17.3); White Blood Count 9.9 T/CUMM (4-12)
[2021-10-11 10:59] LABS: Platelet Count 1 T/CUMM (130-400)
[2021-10-11 11:12] LABS: Hypochromia 1+; Microcytosis 1+; Platelet Estimate Decreased
[2021-10-11 11:15] LABS: Albumin 1.7 G/DL (3.4-5.0); Bilirubin,Total 1.2 MG/DL (0.20-1.00); Calcium 7.7 MG/DL (8.5-10.1); Potassium 3.9 MMOL/L (3.5-5.1); Total Protein 4.7 G/DL (6.4-8.2)
[2021-10-11] MEDS: INSULIN LISPRO 100 UNIT/ML SUBCUT SCH ×4 (11:34→21:14)
[2021-10-11] MEDS: predniSONE 20 MG TABLET PO SCH (20:54)
[2021-10-11] MEDS: BIMATOPROST 0.01% OPH SOLN 2.5 ML BOTTLE LEFT EYE SCH (20:54)
[2021-10-11] MEDS: SODIUM CHLORIDE 0.9% 1,000 ML IV SCH ×2 (22:14→22:17)
[2021-10-12] MEDS: VANCOMYCIN 50 MG/ML 60 ML/BOTTLE PO SCH ×3 (05:47→21:14)
[2021-10-12 06:41] LABS: Hematocrit 29.3 VOL% (42.0-52.0); Hemoglobin 9.5 GM/DL (14.0-18.0); Immature Granulocytes % 0.6 %; Immature Granulocytes Absolute 0.05 #; Lymphocytes % 12.5 % (21.2-54.2); Mean Corpuscular HGB Conc 32.4 GM/DL (32-36); Mean Corpuscular Volume 96.1 FL (87-102); Monocytes % 6.2 % (1.7-12.7); NRBC # 0.03 10*3/uL; Neutrophils % 80.7 % (38.7-73.9); Red Blood Count 3.05 MC/CUMM (3.8-5.5); Red Cell Distribution Width 17.5 % (9.3-17.3); White Blood Count 8.1 T/CUMM (4-12)
[2021-10-12 06:45] LABS: Platelet Count 0 T/CUMM (130-400)
[2021-10-12 07:08] LABS: Albumin 1.7 G/DL (3.4-5.0); Bilirubin,Total 1.1 MG/DL (0.20-1.00); Calcium 7.9 MG/DL (8.5-10.1); Osmolality,Calculated 292.8 MOS/KG (273-304); Potassium 4.5 MMOL/L (3.5-5.1); Total Protein 4.8 G/DL (6.4-8.2)
[2021-10-12] MEDS: CLOTRIMAZOLE 10 MG TROCHE PO SCH ×3 (11:13→20:16)
[2021-10-12] MEDS: PANTOPRAZOLE 40 MG TABLET PO SCH (11:13)
[2021-10-12] MEDS: FERROUS SULFATE 325 MG TABLET PO SCH (11:14)
[2021-10-12] MEDS: FUROSEMIDE 40 MG TABLET PO SCH (11:14)
[2021-10-12] MEDS: amLODIPine 5 MG TABLET PO SCH (11:14)
[2021-10-12] MEDS: predniSONE 20 MG TABLET PO SCH ×2 (11:14→20:16)
[2021-10-12] MEDS: INSULIN LISPRO 100 UNIT/ML SUBCUT SCH ×4 (11:15→22:03)
[2021-10-12] MEDS: CHOLESTYRAMINE 4 GM PACK PO SCH ×2 (11:15→21:14)
[2021-10-12] MEDS: BRIMONIDINE 0.2% OPH SOLN 5 ML BOTTLE LEFT EYE SCH ×2 (11:16→20:15)
[2021-10-12] MEDS: TRANEXAMIC ACID 1,000 MG in SODIUM CHLORIDE 0.9% 100 ML IV SCH ×3 (11:16→19:30)
[2021-10-12] MEDS: DORZOLAMIDE 2% OPH SOLN 10 ML BOTTLE LEFT EYE SCH ×3 (11:16→20:17)
[2021-10-12] MEDS: MULTIVITAMIN (CENTRUM) TABLET PO SCH (11:16)
[2021-10-12] MEDS ORDERED: MEGESTROL 400 MG/10 ML UDCUP PO SCH (12:22)
[2021-10-12] MEDS: SODIUM CHLORIDE 0.9% 1,000 ML IV SCH (16:18)
[2021-10-12] MEDS ORDERED: AMINO ACIDS/DEXT/LYTES 4.25-5% 2,000 ML IV SCH (17:00)
[2021-10-12] MEDS: BIMATOPROST 0.01% OPH SOLN 2.5 ML BOTTLE LEFT EYE SCH (20:15)
[2021-10-12] MEDS: MEGESTROL 400 MG/10 ML UDCUP PO SCH (20:17)
[2021-10-12] MEDS: AMINO ACIDS/DEXT/LYTES 4.25-5% 1,000 ML IV SCH (21:19)
[2021-10-13] MEDS: TRANEXAMIC ACID 1,000 MG in SODIUM CHLORIDE 0.9% 100 ML IV SCH ×3 (04:08→22:26)
[2021-10-13] MEDS: VANCOMYCIN 50 MG/ML 60 ML/BOTTLE PO SCH ×3 (05:40→21:01)
[2021-10-13 06:00] LABS: Hematocrit 27.3 VOL% (42.0-52.0); Hemoglobin 8.8 GM/DL (14.0-18.0); Immature Granulocytes % 0.7 %; Immature Granulocytes Absolute 0.04 #; Lymphocytes # 0.5 10*3/uL (1.4-4.0); Lymphocytes % 7.7 % (21.2-54.2); Mean Corpuscular HGB Conc 32.2 GM/DL (32-36); Mean Corpuscular Volume 97.2 FL (87-102); NRBC # 0.02 10*3/uL; Neutrophils % 86.6 % (38.7-73.9); Red Blood Count 2.81 MC/CUMM (3.8-5.5); Red Cell Distribution Width 17.7 % (9.3-17.3); White Blood Count 5.8 T/CUMM (4-12)
[2021-10-13 06:01] LABS: Platelet Count 1 T/CUMM (130-400)
[2021-10-13 06:17] LABS: Albumin 1.5 G/DL (3.4-5.0); Bilirubin,Total 1.9 MG/DL (0.20-1.00); Calcium 7.6 MG/DL (8.5-10.1); Potassium 4.3 MMOL/L (3.5-5.1); Total Protein 4.3 G/DL (6.4-8.2)
[2021-10-13] MEDS: INSULIN LISPRO 100 UNIT/ML SUBCUT SCH ×4 (07:40→20:45)
[2021-10-13] MEDS: CHOLESTYRAMINE 4 GM PACK PO SCH ×2 (09:29→21:02)
[2021-10-13] MEDS: MULTIVITAMIN (CENTRUM) TABLET PO SCH (09:30)
[2021-10-13] MEDS: amLODIPine 5 MG TABLET PO SCH (09:30)
[2021-10-13] MEDS: FUROSEMIDE 40 MG TABLET PO SCH (09:31)
[2021-10-13] MEDS: predniSONE 20 MG TABLET PO SCH ×2 (09:31→20:37)
[2021-10-13] MEDS ORDERED: MYLANTA/LIDO VISC/DIPH 300 ML BOTTLE SWISH/SWAL PRN (09:31)
[2021-10-13] MEDS: PANTOPRAZOLE 40 MG TABLET PO SCH (09:31)
[2021-10-13] MEDS ORDERED: BENZOCAINE/MENTHOL LOZENGE 18/BOX PO PRN (09:34)
[2021-10-13] MEDS: MEGESTROL 400 MG/10 ML UDCUP PO SCH ×2 (09:39→20:36)
[2021-10-13] MEDS: CLOTRIMAZOLE 10 MG TROCHE PO SCH ×3 (09:39→20:36)
[2021-10-13] MEDS: FERROUS SULFATE 325 MG TABLET PO SCH (09:39)
[2021-10-13] MEDS: AMINO ACIDS/DEXT/LYTES 4.25-5% 1,000 ML IV SCH ×2 (09:41→22:32)
[2021-10-13] MEDS: BRIMONIDINE 0.2% OPH SOLN 5 ML BOTTLE LEFT EYE SCH ×2 (09:45→20:26)
[2021-10-13] MEDS: DORZOLAMIDE 2% OPH SOLN 10 ML BOTTLE LEFT EYE SCH ×3 (09:47→20:26)
[2021-10-13] MEDS ORDERED: SERTRALINE 25 MG TABLET PO SCH (14:00)
[2021-10-13] MEDS ORDERED: SERTRALINE 25 MG TABLET PO ONE (14:00)
[2021-10-13] MEDS: ALBUMIN 25% 25 GM/100 ML VIAL IV SCH ×2 (16:24→22:21)
[2021-10-13] MEDS: NYSTATIN 500,000 UNIT/5 ML UDCUP SWISH/SWAL SCH ×2 (17:20→20:37)
[2021-10-13] MEDS: BIMATOPROST 0.01% OPH SOLN 2.5 ML BOTTLE LEFT EYE SCH (20:26)
[2021-10-14 06:11] LABS: Hematocrit 24.7 VOL% (42.0-52.0); Hemoglobin 7.8 GM/DL (14.0-18.0); Immature Granulocytes % 0.6 %; Immature Granulocytes Absolute 0.02 #; Lymphocytes # 0.3 10*3/uL (1.4-4.0); Lymphocytes % 8.7 % (21.2-54.2); Mean Corpuscular HGB Conc 31.6 GM/DL (32-36); Mean Corpuscular Volume 97.6 FL (87-102); Monocytes % 5.9 % (1.7-12.7); Neutrophils % 84.8 % (38.7-73.9); Red Blood Count 2.53 MC/CUMM (3.8-5.5); Red Cell Distribution Width 17.6 % (9.3-17.3); White Blood Count 3.6 T/CUMM (4-12)
[2021-10-14 06:13] LABS: Platelet Count 1 T/CUMM (130-400)
[2021-10-14] MEDS: VANCOMYCIN 50 MG/ML 60 ML/BOTTLE PO SCH ×3 (06:21→21:27)
[2021-10-14] MEDS: ALBUMIN 25% 25 GM/100 ML VIAL IV SCH ×3 (06:21→23:44)
[2021-10-14 06:33] LABS: Hypochromia 1+; Microcytosis 1+; Platelet Estimate Decreased
[2021-10-14 06:39] LABS: Calcium 7.8 MG/DL (8.5-10.1); Osmolality,Calculated 288.1 MOS/KG (273-304); Total Protein 4.4 G/DL (6.4-8.2)
[2021-10-14] MEDS: TRANEXAMIC ACID 1,000 MG in SODIUM CHLORIDE 0.9% 100 ML IV SCH ×3 (06:48→23:44)
[2021-10-14] MEDS ORDERED: SODIUM CHLORIDE 0.9% 1,000 ML IV PRN (07:57)
[2021-10-14] MEDS: PANTOPRAZOLE 40 MG TABLET PO SCH (08:59)
[2021-10-14] MEDS: CLOTRIMAZOLE 10 MG TROCHE PO SCH ×3 (08:59→21:27)
[2021-10-14] MEDS: MULTIVITAMIN (CENTRUM) TABLET PO SCH (08:59)
[2021-10-14] MEDS: SERTRALINE 25 MG TABLET PO SCH (08:59)
[2021-10-14] MEDS: FUROSEMIDE 40 MG TABLET PO SCH (08:59)
[2021-10-14] MEDS: NYSTATIN 500,000 UNIT/5 ML UDCUP SWISH/SWAL SCH ×4 (08:59→21:28)
[2021-10-14] MEDS: FERROUS SULFATE 325 MG TABLET PO SCH (08:59)
[2021-10-14] MEDS: amLODIPine 5 MG TABLET PO SCH (09:00)
[2021-10-14] MEDS: BRIMONIDINE 0.2% OPH SOLN 5 ML BOTTLE LEFT EYE SCH ×2 (09:00→21:27)
[2021-10-14] MEDS: INSULIN LISPRO 100 UNIT/ML SUBCUT SCH ×4 (09:00→21:28)
[2021-10-14] MEDS: MEGESTROL 400 MG/10 ML UDCUP PO SCH ×2 (09:00→21:27)
[2021-10-14] MEDS: DORZOLAMIDE 2% OPH SOLN 10 ML BOTTLE LEFT EYE SCH ×3 (09:01→21:28)
[2021-10-14] MEDS: predniSONE 20 MG TABLET PO SCH ×2 (09:09→21:27)
[2021-10-14] MEDS: CHOLESTYRAMINE 4 GM PACK PO SCH ×2 (10:41→22:03)
[2021-10-14] MEDS: DEXTROSE IV SCH (17:06)
[2021-10-14] MEDS: AMINO ACIDS IV SCH (17:06)
[2021-10-14] MEDS: ELECTROLYTE IV SCH (17:06)
[2021-10-14] MEDS: BIMATOPROST 0.01% OPH SOLN 2.5 ML BOTTLE LEFT EYE SCH (21:28)
[2021-10-15 05:31] LABS: Hematocrit 27.1 VOL% (42.0-52.0); Hemoglobin 8.9 GM/DL (14.0-18.0); Immature Granulocytes % 0.6 %; Immature Granulocytes Absolute 0.02 #; Lymphocytes # 0.5 10*3/uL (1.4-4.0); Lymphocytes % 13.8 % (21.2-54.2); Mean Corpuscular HGB Conc 32.8 GM/DL (32-36); Mean Corpuscular Volume 92.8 FL (87-102); Monocytes % 5.2 % (1.7-12.7); Neutrophils % 80.4 % (38.7-73.9); Red Blood Count 2.92 MC/CUMM (3.8-5.5); White Blood Count 3.3 T/CUMM (4-12)
[2021-10-15 05:34] LABS: Platelet Count 0 T/CUMM (130-400)
[2021-10-15 05:49] LABS: Hypochromia 1+; Microcytosis 1+
[2021-10-15 06:12] LABS: Albumin 2.5 G/DL (3.4-5.0); Bilirubin,Total 1.9 MG/DL (0.20-1.00); Calcium 7.8 MG/DL (8.5-10.1); Osmolality,Calculated 284.4 MOS/KG (273-304); Potassium 4.1 MMOL/L (3.5-5.1); Total Protein 4.6 G/DL (6.4-8.2)
[2021-10-15] MEDS: VANCOMYCIN 50 MG/ML 60 ML/BOTTLE PO SCH ×2 (07:47→15:57)
[2021-10-15] MEDS: predniSONE 20 MG TABLET PO SCH ×2 (09:09→22:48)
[2021-10-15] MEDS: FERROUS SULFATE 325 MG TABLET PO SCH (09:09)
[2021-10-15] MEDS: amLODIPine 5 MG TABLET PO SCH (09:09)
[2021-10-15] MEDS: FUROSEMIDE 40 MG TABLET PO SCH (09:09)
[2021-10-15] MEDS: ALBUMIN 25% 25 GM/100 ML VIAL IV SCH ×3 (09:09→22:49)
[2021-10-15] MEDS: SERTRALINE 25 MG TABLET PO SCH (09:10)
[2021-10-15] MEDS: BRIMONIDINE 0.2% OPH SOLN 5 ML BOTTLE LEFT EYE SCH ×2 (09:10→22:47)
[2021-10-15] MEDS: INSULIN LISPRO 100 UNIT/ML SUBCUT SCH ×4 (09:10→22:47)
[2021-10-15] MEDS: MULTIVITAMIN (CENTRUM) TABLET PO SCH (09:10)
[2021-10-15] MEDS: PANTOPRAZOLE 40 MG TABLET PO SCH (09:10)
[2021-10-15] MEDS: CLOTRIMAZOLE 10 MG TROCHE PO SCH ×3 (09:10→22:48)
[2021-10-15] MEDS: NYSTATIN 500,000 UNIT/5 ML UDCUP SWISH/SWAL SCH ×4 (09:11→22:48)
[2021-10-15] MEDS: MEGESTROL 400 MG/10 ML UDCUP PO SCH ×2 (09:11→22:47)
[2021-10-15] MEDS: DORZOLAMIDE 2% OPH SOLN 10 ML BOTTLE LEFT EYE SCH ×3 (09:11→22:48)
[2021-10-15] MEDS: CHOLESTYRAMINE 4 GM PACK PO SCH ×2 (09:12→22:48)
[2021-10-15] MEDS: TRANEXAMIC ACID 1,000 MG in SODIUM CHLORIDE 0.9% 100 ML IV SCH ×2 (09:18→18:24)
[2021-10-15] MEDS: VANCOMYCIN 125 MG CAPSULE PO SCH ×2 (16:59→22:48)
[2021-10-15] MEDS ORDERED: cefTRIAXone 1,000 MG in SODIUM CHLORIDE 0.9% 100 ML IV SCH (17:00)
[2021-10-15] MEDS: ELECTROLYTE IV SCH (17:27)
[2021-10-15] MEDS: AMINO ACIDS IV SCH (17:27)
[2021-10-15] MEDS: DEXTROSE IV SCH (17:27)
[2021-10-15] MEDS: BIMATOPROST 0.01% OPH SOLN 2.5 ML BOTTLE LEFT EYE SCH (22:47)
[2021-10-16] MEDS: TRANEXAMIC ACID 1,000 MG in SODIUM CHLORIDE 0.9% 100 ML IV SCH ×4 (03:05→21:30)
[2021-10-16 05:15] LABS: Hematocrit 30.5 VOL% (42.0-52.0); Immature Granulocytes % 1.2 %; Immature Granulocytes Absolute 0.05 #; Lymphocytes # 0.4 10*3/uL (1.4-4.0); Lymphocytes % 9.2 % (21.2-54.2); Mean Corpuscular HGB Conc 32.8 GM/DL (32-36); Mean Corpuscular Volume 93.8 FL (87-102); Monocytes % 4.9 % (1.7-12.7); NRBC # 0.03 10*3/uL; Neutrophils % 84.7 % (38.7-73.9); Red Blood Count 3.25 MC/CUMM (3.8-5.5); Red Cell Distribution Width 18.4 % (9.3-17.3); White Blood Count 4.1 T/CUMM (4-12)
[2021-10-16 05:18] LABS: Platelet Count 1 T/CUMM (130-400)
[2021-10-16 05:41] LABS: Albumin 3.2 G/DL (3.4-5.0); Bilirubin,Total 1.4 MG/DL (0.20-1.00); Calcium 8.4 MG/DL (8.5-10.1); Osmolality,Calculated 281.8 MOS/KG (273-304); Potassium 4.3 MMOL/L (3.5-5.1); Total Protein 5.1 G/DL (6.4-8.2)
[2021-10-16 05:42] LABS: Hypochromia 1+; Microcytosis 1+; Ovalocytes Slight; Platelet Estimate Decreased
[2021-10-16] MEDS: VANCOMYCIN 125 MG CAPSULE PO SCH ×3 (05:56→21:10)
[2021-10-16] MEDS: ALBUMIN 25% 25 GM/100 ML VIAL IV SCH ×3 (06:15→22:40)
[2021-10-16] MEDS ORDERED: SODIUM CHLORIDE 0.9% 1,000 ML IV PRN (08:13)
[2021-10-16] MEDS ORDERED: FUROSEMIDE 40 MG/4 ML VIAL IV ONE (08:20)
[2021-10-16] MEDS ORDERED: IMMUNE GLOBULIN 10% 20 GM, IMMUNE GLOBULIN 10% 10 GM in PREMIX 1 EACH IV ONE (09:00)
[2021-10-16] MEDS: MEROPENEM 500 MG in SODIUM CHLORIDE 0.9% 100 ML IV SCH ×3 (11:15→20:12)
[2021-10-16] MEDS: BRIMONIDINE 0.2% OPH SOLN 5 ML BOTTLE LEFT EYE SCH ×2 (11:22→20:11)
[2021-10-16] MEDS: MULTIVITAMIN (CENTRUM) TABLET PO SCH (11:22)
[2021-10-16] MEDS: amLODIPine 5 MG TABLET PO SCH (11:23)
[2021-10-16] MEDS: predniSONE 20 MG TABLET PO SCH ×2 (11:23→20:10)
[2021-10-16] MEDS: MEGESTROL 400 MG/10 ML UDCUP PO SCH ×2 (11:23→20:26)
[2021-10-16] MEDS: CLOTRIMAZOLE 10 MG TROCHE PO SCH ×3 (11:23→20:26)
[2021-10-16] MEDS: SERTRALINE 25 MG TABLET PO SCH (11:24)
[2021-10-16] MEDS: DORZOLAMIDE 2% OPH SOLN 10 ML BOTTLE LEFT EYE SCH ×3 (11:24→20:11)
[2021-10-16] MEDS: CHOLESTYRAMINE 4 GM PACK PO SCH ×2 (11:24→21:10)
[2021-10-16] MEDS: PANTOPRAZOLE 40 MG TABLET PO SCH (11:24)
[2021-10-16] MEDS: INSULIN LISPRO 100 UNIT/ML SUBCUT SCH ×4 (11:26→21:35)
[2021-10-16] MEDS: FUROSEMIDE 40 MG TABLET PO SCH (12:28)
[2021-10-16] MEDS: NYSTATIN 500,000 UNIT/5 ML UDCUP SWISH/SWAL SCH ×3 (12:29→20:26)
[2021-10-16] MEDS: FERROUS SULFATE 325 MG TABLET PO SCH (12:31)
[2021-10-16] MEDS ORDERED: LYTES IV SCH (17:00)
[2021-10-16] MEDS ORDERED: AMINO ACIDS IV SCH (17:00)
[2021-10-16] MEDS ORDERED: DEXT IV SCH (17:00)
[2021-10-16] MEDS ORDERED: ELECTROLYTE IV SCH (17:00)
[2021-10-16] MEDS: BIMATOPROST 0.01% OPH SOLN 2.5 ML BOTTLE LEFT EYE SCH (20:11)
[2021-10-16] MEDS: AMINO ACIDS/DEXT/LYTES 4.25-5% 2,000 ML IV SCH (20:27)
[2021-10-17] MEDS: MEROPENEM 500 MG in SODIUM CHLORIDE 0.9% 100 ML IV SCH ×4 (01:57→21:56)
[2021-10-17 04:39] LABS: Hematocrit 26.6 VOL% (42.0-52.0); Hemoglobin 8.6 GM/DL (14.0-18.0); Immature Granulocytes % 1.9 %; Immature Granulocytes Absolute 0.06 #; Lymphocytes # 0.3 10*3/uL (1.4-4.0); Lymphocytes % 10.4 % (21.2-54.2); Mean Corpuscular HGB Conc 32.3 GM/DL (32-36); Mean Corpuscular Volume 93.3 FL (87-102); NRBC # 0.03 10*3/uL; Neutrophils % 80.7 % (38.7-73.9); Red Blood Count 2.85 MC/CUMM (3.8-5.5); Red Cell Distribution Width 18.9 % (9.3-17.3); White Blood Count 3.2 T/CUMM (4-12)
[2021-10-17 04:59] LABS: Platelet Count 2 T/CUMM (130-400)
[2021-10-17 05:04] LABS: Calcium 8.2 MG/DL (8.5-10.1); Osmolality,Calculated 281.7 MOS/KG (273-304); Potassium 3.9 MMOL/L (3.5-5.1)
[2021-10-17 05:11] LABS: Albumin 3.3 G/DL (3.4-5.0); Bilirubin,Total 1.5 MG/DL (0.20-1.00); Calcium 8.3 MG/DL (8.5-10.1); Potassium 3.9 MMOL/L (3.5-5.1); Total Protein 5.8 G/DL (6.4-8.2)
[2021-10-17 05:32] LABS: Anisocytosis 1+; Hypochromia 1+; Lymphocytes 7 % (20-55); Microcytosis 1+; Segmented Neutrophils 90 % (50-85); Total Cells Counted 100
[2021-10-17 05:33] LABS: Platelet Estimate Decreased
[2021-10-17] MEDS: VANCOMYCIN 125 MG CAPSULE PO SCH ×3 (05:43→21:02)
[2021-10-17] MEDS: TRANEXAMIC ACID 1,000 MG in SODIUM CHLORIDE 0.9% 100 ML IV SCH ×2 (05:56→15:21)
[2021-10-17] MEDS: ALBUMIN 25% 25 GM/100 ML VIAL IV SCH ×2 (06:00→15:22)
[2021-10-17] MEDS: FUROSEMIDE 40 MG TABLET PO SCH (10:04)
[2021-10-17] MEDS: MULTIVITAMIN (CENTRUM) TABLET PO SCH (10:04)
[2021-10-17] MEDS: amLODIPine 5 MG TABLET PO SCH (10:05)
[2021-10-17] MEDS: FERROUS SULFATE 325 MG TABLET PO SCH (10:05)
[2021-10-17] MEDS: predniSONE 20 MG TABLET PO SCH ×2 (10:05→21:02)
[2021-10-17] MEDS: PANTOPRAZOLE 40 MG TABLET PO SCH (10:05)
[2021-10-17] MEDS: SERTRALINE 25 MG TABLET PO SCH (10:05)
[2021-10-17] MEDS: BRIMONIDINE 0.2% OPH SOLN 5 ML BOTTLE LEFT EYE SCH ×2 (10:06→21:05)
[2021-10-17] MEDS: DORZOLAMIDE 2% OPH SOLN 10 ML BOTTLE LEFT EYE SCH ×3 (10:07→21:45)
[2021-10-17] MEDS: FLUCONAZOLE INJ 100 MG/50 ML PREMIX IV SCH (10:49)
[2021-10-17] MEDS: MEGESTROL 400 MG/10 ML UDCUP PO SCH ×2 (10:54→21:07)
[2021-10-17] MEDS: CLOTRIMAZOLE 10 MG TROCHE PO SCH ×3 (10:54→21:08)
[2021-10-17] MEDS: NYSTATIN 500,000 UNIT/5 ML UDCUP SWISH/SWAL SCH ×4 (10:55→21:08)
[2021-10-17] MEDS: CHOLESTYRAMINE 4 GM PACK PO SCH ×2 (10:55→21:45)
[2021-10-17] MEDS: INSULIN LISPRO 100 UNIT/ML SUBCUT SCH ×4 (11:00→21:45)
[2021-10-17] MEDS: BACITRACIN OINT 0.9 GM PACK TOP SCH (15:42)
[2021-10-17] MEDS ORDERED: FUROSEMIDE 40 MG/4 ML VIAL IV ONE (15:42)
[2021-10-17] MEDS ORDERED: ALPRAZolam 0.25 MG TABLET PO PRN (19:05)
[2021-10-17] MEDS ORDERED: ALUMINUM/MAGNES/SIMETH MAX STR 30 ML UDCUP PO PRN (19:05)
[2021-10-17] MEDS ORDERED: PROMETHAZINE INJ 25 MG in SODIUM CHLORIDE 0.9% 50 ML IV PRN (19:05)
[2021-10-17] MEDS ORDERED: LOPERAMIDE 2 MG CAPSULE PO PRN ×2 (19:05)
[2021-10-17] MEDS ORDERED: TEMAZEPAM 7.5 MG CAPSULE PO PRN (19:05)
[2021-10-17] MEDS ORDERED: ONDANSETRON 4 MG/2 ML VIAL IV PRN (19:05)
[2021-10-17] MEDS ORDERED: guaiFENesin 200 MG/10 ML UDCUP PO PRN (19:05)
[2021-10-17] MEDS ORDERED: LACTULOSE 20 GM/30 ML UDCUP PO PRN (19:05)
[2021-10-17] MEDS ORDERED: MYLANTA/LIDO VISC 2:1 300 ML BOTTLE SWISH/SPIT PRN (19:05)
[2021-10-17] MEDS ORDERED: traMADol 50 MG TABLET PO PRN (19:05)
[2021-10-17] MEDS ORDERED: diphenhydrAMINE CAP 25 MG CAPSULE PO PRN (19:05)
[2021-10-17] MEDS ORDERED: MYLANTA/LIDO VISC 2:1 300 ML BOTTLE SWISH/SWAL PRN (19:05)
[2021-10-17] MEDS ORDERED: MAGNESIUM HYDROXIDE SUSP 30 ML UDCUP PO PRN (19:05)
[2021-10-17] MEDS ORDERED: ACETAMINOPHEN 325 MG TABLET PO PRN (19:05)
[2021-10-17] MEDS ORDERED: FUROSEMIDE 20 MG/2 ML VIAL IV ONE (20:50)
[2021-10-17] MEDS ORDERED: amLODIPine 5 MG TABLET PO SCH (21:00)
[2021-10-17] MEDS: BIMATOPROST 0.01% OPH SOLN 2.5 ML BOTTLE LEFT EYE SCH (21:05)
[2021-10-17] MEDS: AMINO ACIDS/DEXT/LYTES 4.25-5% 2,000 ML IV SCH (21:59)
[2021-10-18] MEDS: TRANEXAMIC ACID 1,000 MG in SODIUM CHLORIDE 0.9% 100 ML IV SCH ×3 (00:28→18:00)
[2021-10-18 00:36] LABS: ABG Base Excess -0.4 MMOL/L (-2.5-2.5); ABG HCO3 24.1 MMOL/L (20-26); ABG Oxygen Saturation 98.7 % (95-100); ABG PCO2 32.8 MM HG (35-48); ABG PH 7.455 (7.35-7.45); ABG TCO2 21.3 MMOL/L (23-27)
[2021-10-18 00:47] LABS: Albumin 3.4 G/DL (3.4-5.0); Bilirubin,Total 2.1 MG/DL (0.20-1.00); Osmolality,Calculated 278.1 MOS/KG (273-304); Potassium 3.9 MMOL/L (3.5-5.1); Total Protein 5.6 G/DL (6.4-8.2)
[2021-10-18 01:24] LABS: Basophils % 0.1 % (0.0-0.8); Hematocrit 26.6 VOL% (42.0-52.0); Hemoglobin 8.6 GM/DL (14.0-18.0); Immature Granulocytes % 1.5 %; Immature Granulocytes Absolute 0.13 #; Lymphocytes # 0.9 10*3/uL (1.4-4.0); Mean Corpuscular HGB Conc 32.3 GM/DL (32-36); Mean Corpuscular Volume 95.3 FL (87-102); Monocytes % 4.6 % (1.7-12.7); NRBC # 0.27 10*3/uL; Neutrophils % 82.8 % (38.7-73.9); Red Blood Count 2.79 MC/CUMM (3.8-5.5); Red Cell Distribution Width 20.2 % (9.3-17.3); White Blood Count 8.4 T/CUMM (4-12)
[2021-10-18 01:30] LABS: Platelet Count 1 T/CUMM (130-400)
[2021-10-18] MEDS ORDERED: ROCURONIUM 100 MG/10 ML VIAL IV ONE ×2 (01:50→01:57)
[2021-10-18] MEDS ORDERED: ETOMIDATE 20 MG/10 ML VIAL IV ONE ×2 (01:50→01:56)
[2021-10-18 01:51] LABS: Lymphocytes 10 % (20-55); Segmented Neutrophils 85 % (50-85); Total Cells Counted 100
[2021-10-18 01:52] LABS: Platelet Estimate Decreased; Poikilocytosis 1+; Polychromasia 1+; Stomatocytes 1+
[2021-10-18] MEDS ORDERED: LABETALOL 20 MG/4 ML SYRINGE IV ONE (02:07)
[2021-10-18] MEDS: MEROPENEM 500 MG in SODIUM CHLORIDE 0.9% 100 ML IV SCH ×4 (02:18→21:30)
[2021-10-18] MEDS ORDERED: LABETALOL 20 MG/4 ML SYRINGE IV PRN (03:18)
[2021-10-18 03:19] LABS: ABG Base Excess -2.2 MMOL/L (-2.5-2.5); ABG HCO3 22.5 MMOL/L (20-26); ABG Oxygen Saturation 95.7 % (95-100); ABG PCO2 59.6 MM HG (35-48); ABG PH 7.243 (7.35-7.45); ABG PO2 93.8 MM HG (80-95); ABG TCO2 24.4 MMOL/L (23-27); Allen Test Positive; Pt O2 Delivery Device Ventilator
[2021-10-18] MEDS ORDERED: methylPREDNISolone SOD SUC 40 MG/1 ML VIAL IV SCH (04:00)
[2021-10-18 04:18] LABS: Bilirubin,Urine Negative (Negative); Blood, Urine Moderate mg/dL (Negative); Glucose,Urine (UA) 50 mg/dL (Negative); Hyaline Casts,Urine 1 /LPF (0-3); Ketones,Urine Negative (Negative); Mucus,Urine Occasional /LPF (Occasional); Nitrite,Urine Negative (Negative); Protein,Urine 100 MG/DL; RBC,Urine 12 /HPF (0-4); Urine Appearance CLEAR (Clear); Urine Color Yellow (Yellow); Urine Specific Gravity 1.017 (1.001-1.035); Urine Urobilinogen < 2.0 EU/DL (<2.0)
[2021-10-18] MEDS ORDERED: SODIUM CHLORIDE 0.9% 1,000 ML IV PRN ×2 (05:51→09:50)
[2021-10-18] MEDS ORDERED: FUROSEMIDE 40 MG/4 ML VIAL IV ONE (06:00)
[2021-10-18] MEDS: BRIMONIDINE 0.2% OPH SOLN 5 ML BOTTLE LEFT EYE SCH ×2 (09:00→23:09)
[2021-10-18] MEDS: BACITRACIN OINT 0.9 GM PACK TOP SCH (09:00)
[2021-10-18] MEDS: DORZOLAMIDE 2% OPH SOLN 10 ML BOTTLE LEFT EYE SCH ×3 (09:00→23:09)
[2021-10-18] MEDS: FUROSEMIDE 20 MG/2 ML VIAL IV SCH ×2 (09:25→15:45)
[2021-10-18] MEDS: PANTOPRAZOLE 40 MG VIAL IV SCH ×2 (09:25→21:31)
[2021-10-18] MEDS: NYSTATIN 500,000 UNIT/5 ML UDCUP SWISH/SWAL SCH ×4 (09:30→21:31)
[2021-10-18] MEDS ORDERED: PHYTONADIONE INJ 5 MG in SODIUM CHLORIDE 0.9% 50 ML IV ONE (09:51)
[2021-10-18 09:57] LABS: INR 1.5; PT Patient Result 16.6 SECS (10.5-12.0)
[2021-10-18] MEDS: FLUCONAZOLE INJ 100 MG/50 ML PREMIX IV SCH (11:00)
[2021-10-18] MEDS: methylPREDNISolone SOD SUC 40 MG/1 ML VIAL IV SCH ×3 (11:20→21:31)
[2021-10-18] MEDS: INSULIN LISPRO 100 UNIT/ML SUBCUT SCH ×2 (12:10→18:00)
[2021-10-18] MEDS: AMINO ACIDS/DEXT/LYTES 4.25-5% 2,000 ML IV SCH (16:45)
[2021-10-18] MEDS: BIMATOPROST 0.01% OPH SOLN 2.5 ML BOTTLE LEFT EYE SCH (23:09)
[2021-10-19] MEDS: INSULIN LISPRO 100 UNIT/ML SUBCUT SCH ×4 (00:36→18:13)
[2021-10-19] MEDS: TRANEXAMIC ACID 1,000 MG in SODIUM CHLORIDE 0.9% 100 ML IV SCH ×3 (03:12→22:30)
[2021-10-19] MEDS: MEROPENEM 500 MG in SODIUM CHLORIDE 0.9% 100 ML IV SCH ×4 (03:13→21:14)
[2021-10-19] MEDS: methylPREDNISolone SOD SUC 40 MG/1 ML VIAL IV SCH ×4 (03:13→22:31)
[2021-10-19 03:55] LABS: ABG Base Excess 0.2 MMOL/L (-2.5-2.5); ABG HCO3 24.4 MMOL/L (20-26); ABG Oxygen Saturation 98.7 % (95-100); ABG PCO2 37.3 MM HG (35-48); ABG PH 7.434 (7.35-7.45); ABG PO2 235.1 MM HG (80-95); ABG TCO2 25.6 MMOL/L (23-27)
[2021-10-19 04:06] LABS: Immature Granulocytes % 1.1 %; Immature Granulocytes Absolute 0.05 #; Lymphocytes # 0.5 10*3/uL (1.4-4.0); Lymphocytes % 11.1 % (21.2-54.2); Mean Corpuscular HGB Conc 31.7 GM/DL (32-36); Mean Corpuscular Volume 100.6 FL (87-102); Monocytes % 4.1 % (1.7-12.7); NRBC # 0.07 10*3/uL; Neutrophils % 83.7 % (38.7-73.9); Red Blood Count 1.79 MC/CUMM (3.8-5.5); White Blood Count 4.4 T/CUMM (4-12)
[2021-10-19 04:11] LABS: Hemoglobin 5.7 GM/DL (14.0-18.0); Platelet Count 0 T/CUMM (130-400)
[2021-10-19] MEDS ORDERED: SODIUM CHLORIDE 0.9% 1,000 ML IV PRN ×3 (04:21→04:22)
[2021-10-19 04:22] LABS: Albumin 2.5 G/DL (3.4-5.0); Bilirubin,Total 1.1 MG/DL (0.20-1.00); Calcium 7.7 MG/DL (8.5-10.1); Osmolality,Calculated 292.5 MOS/KG (273-304); Potassium 4.2 MMOL/L (3.5-5.1)
[2021-10-19 04:31] LABS: Hypochromia 1+; Lymphocytes 7 % (20-55); Microcytosis 1+; Nucleated Red Blood Cells 3 (0-5); Segmented Neutrophils 91 % (50-85); Total Cells Counted 100
[2021-10-19] MEDS: PANTOPRAZOLE 40 MG VIAL IV SCH ×2 (07:30→21:15)
[2021-10-19] MEDS: FUROSEMIDE 20 MG/2 ML VIAL IV SCH ×2 (07:30→16:35)
[2021-10-19] MEDS: NYSTATIN 500,000 UNIT/5 ML UDCUP SWISH/SWAL SCH ×4 (07:50→21:15)
[2021-10-19] MEDS: BRIMONIDINE 0.2% OPH SOLN 5 ML BOTTLE LEFT EYE SCH ×2 (09:00→22:33)
[2021-10-19] MEDS: FLUCONAZOLE INJ 100 MG/50 ML PREMIX IV SCH (09:40)
[2021-10-19] MEDS: DORZOLAMIDE 2% OPH SOLN 10 ML BOTTLE LEFT EYE SCH ×3 (09:45→22:32)
[2021-10-19] MEDS ORDERED: IMMUNE GLOBULIN 10% 20 GM, IMMUNE GLOBULIN 10% 10 GM in PREMIX 1 EACH IV ONE (11:00)
[2021-10-19] MEDS: BACITRACIN OINT 0.9 GM PACK TOP SCH (11:20)
[2021-10-19] MEDS: AMINO ACIDS/DEXT/LYTES 4.25-5% 2,000 ML IV SCH (16:40)
[2021-10-19] MEDS: BIMATOPROST 0.01% OPH SOLN 2.5 ML BOTTLE LEFT EYE SCH (22:33)
[2021-10-20] MEDS: INSULIN LISPRO 100 UNIT/ML SUBCUT SCH ×5 (00:25→23:59)
[2021-10-20] MEDS: MEROPENEM 500 MG in SODIUM CHLORIDE 0.9% 100 ML IV SCH ×4 (03:14→21:24)
[2021-10-20] MEDS: methylPREDNISolone SOD SUC 40 MG/1 ML VIAL IV SCH ×4 (03:15→21:29)
[2021-10-20 03:41] LABS: Basophils % 0.1 % (0.0-0.8); Immature Granulocytes % 1.3 %; Immature Granulocytes Absolute 0.09 #; Lymphocytes # 0.6 10*3/uL (1.4-4.0); Lymphocytes % 8.8 % (21.2-54.2); Mean Corpuscular HGB Conc 32.8 GM/DL (32-36); Mean Corpuscular Volume 99.3 FL (87-102); Monocytes % 3.6 % (1.7-12.7); Neutrophils % 86.2 % (38.7-73.9); Red Cell Distribution Width 21.5 % (9.3-17.3)
[2021-10-20 03:49] LABS: Hematocrit 27.4 VOL% (42.0-52.0); Red Blood Count 2.76 MC/CUMM (3.8-5.5)
[2021-10-20 03:51] LABS: Platelet Count 1 T/CUMM (130-400)
[2021-10-20 03:55] LABS: Albumin 2.4 G/DL (3.4-5.0); Bilirubin,Total 2.9 MG/DL (0.20-1.00); Calcium 7.6 MG/DL (8.5-10.1); Osmolality,Calculated 299.1 MOS/KG (273-304); Potassium 3.8 MMOL/L (3.5-5.1); Total Protein 5.4 G/DL (6.4-8.2)
[2021-10-20 04:03] LABS: Hypochromia 1+; Microcytosis 1+; Platelet Estimate Decreased
[2021-10-20] MEDS ORDERED: hydrALAZINE 20 MG/1 ML VIAL IV ONE (04:11)
[2021-10-20 06:27] LABS: ABG Base Excess -0.9 MMOL/L (-2.5-2.5); ABG HCO3 23.1 MMOL/L (20-26); ABG Oxygen Saturation 98.2 % (95-100); ABG PCO2 35.8 MM HG (35-48); ABG PH 7.428 (7.35-7.45); ABG PO2 152.5 MM HG (80-95); ABG TCO2 24.2 MMOL/L (23-27)
[2021-10-20] MEDS: TRANEXAMIC ACID 1,000 MG in SODIUM CHLORIDE 0.9% 100 ML IV SCH ×2 (07:00→16:50)
[2021-10-20] MEDS: DORZOLAMIDE 2% OPH SOLN 10 ML BOTTLE LEFT EYE SCH ×3 (07:40→21:25)
[2021-10-20] MEDS: BRIMONIDINE 0.2% OPH SOLN 5 ML BOTTLE LEFT EYE SCH ×2 (07:50→21:25)
[2021-10-20] MEDS: PANTOPRAZOLE 40 MG VIAL IV SCH ×2 (08:15→21:25)
[2021-10-20] MEDS: FUROSEMIDE 20 MG/2 ML VIAL IV SCH ×2 (08:15→16:15)
[2021-10-20] MEDS: NYSTATIN 500,000 UNIT/5 ML UDCUP SWISH/SWAL SCH ×4 (08:25→21:25)
[2021-10-20] MEDS: BACITRACIN OINT 0.9 GM PACK TOP SCH (09:40)
[2021-10-20] MEDS ORDERED: SODIUM CHLORIDE 0.9% 1,000 ML IV PRN (10:48)
[2021-10-20] MEDS: AMINO ACIDS/DEXT/LYTES 4.25-5% 2,000 ML IV SCH (16:30)
[2021-10-20] MEDS: FLUCONAZOLE INJ 100 MG/50 ML PREMIX IV SCH (17:59)
[2021-10-20] MEDS: BIMATOPROST 0.01% OPH SOLN 2.5 ML BOTTLE LEFT EYE SCH (21:25)
[2021-10-21] MEDS: TRANEXAMIC ACID 1,000 MG in SODIUM CHLORIDE 0.9% 100 ML IV SCH ×5 (01:53→21:07)
[2021-10-21] MEDS: MEROPENEM 500 MG in SODIUM CHLORIDE 0.9% 100 ML IV SCH ×4 (01:56→21:09)
[2021-10-21 04:23] LABS: Basophils % 0.2 % (0.0-0.8); Hematocrit 28.2 VOL% (42.0-52.0); Hemoglobin 9.2 GM/DL (14.0-18.0); Immature Granulocytes % 1.6 %; Immature Granulocytes Absolute 0.07 #; Lymphocytes # 0.4 10*3/uL (1.4-4.0); Lymphocytes % 9.6 % (21.2-54.2); Mean Corpuscular HGB Conc 32.6 GM/DL (32-36); Mean Corpuscular Volume 100.4 FL (87-102); Monocytes % 4.1 % (1.7-12.7); NRBC # 0.14 10*3/uL; Neutrophils % 84.5 % (38.7-73.9); Red Blood Count 2.81 MC/CUMM (3.8-5.5); Red Cell Distribution Width 21.5 % (9.3-17.3); White Blood Count 4.4 T/CUMM (4-12)
[2021-10-21 04:27] LABS: Platelet Count 1 T/CUMM (130-400)
[2021-10-21 04:38] LABS: Calcium 7.7 MG/DL (8.5-10.1); Osmolality,Calculated 303.8 MOS/KG (273-304); Potassium 4.2 MMOL/L (3.5-5.1)
[2021-10-21 04:39] LABS: Platelet Estimate Decreased
[2021-10-21 04:40] LABS: Hypochromia Slight
[2021-10-21 04:41] LABS: Microcytosis Slight
[2021-10-21 04:55] LABS: ABG Base Excess 2.7 MMOL/L (-2.5-2.5); ABG HCO3 26.9 MMOL/L (20-26); ABG Oxygen Saturation 99.5 % (95-100); ABG PCO2 41.7 MM HG (35-48); ABG PH 7.425 (7.35-7.45)
[2021-10-21] MEDS: methylPREDNISolone SOD SUC 40 MG/1 ML VIAL IV SCH ×4 (04:58→21:24)
[2021-10-21] MEDS: INSULIN LISPRO 100 UNIT/ML SUBCUT SCH ×3 (05:43→18:13)
[2021-10-21 07:25] LABS: Albumin 2.5 G/DL (3.4-5.0); Bilirubin,Total 1.7 MG/DL (0.20-1.00); Calcium 7.8 MG/DL (8.5-10.1); Osmolality,Calculated 302.8 MOS/KG (273-304); Potassium 4.2 MMOL/L (3.5-5.1); Total Protein 5.5 G/DL (6.4-8.2)
[2021-10-21] MEDS: BACITRACIN OINT 0.9 GM PACK TOP SCH (09:23)
[2021-10-21] MEDS: NYSTATIN 500,000 UNIT/5 ML UDCUP SWISH/SWAL SCH ×4 (09:23→21:10)
[2021-10-21] MEDS: PANTOPRAZOLE 40 MG VIAL IV SCH ×2 (09:23→21:10)
[2021-10-21] MEDS: FUROSEMIDE 20 MG/2 ML VIAL IV SCH (09:24)
[2021-10-21] MEDS: BRIMONIDINE 0.2% OPH SOLN 5 ML BOTTLE LEFT EYE SCH ×2 (09:25→21:09)
[2021-10-21] MEDS: DORZOLAMIDE 2% OPH SOLN 10 ML BOTTLE LEFT EYE SCH ×3 (09:26→21:10)
[2021-10-21] MEDS: FLUCONAZOLE INJ 100 MG/50 ML PREMIX IV SCH (10:43)
[2021-10-21] MEDS: hydrALAZINE 20 MG/1 ML VIAL IV PRN (11:38)
[2021-10-21] MEDS: FUROSEMIDE 40 MG/4 ML VIAL IV SCH (16:24)
[2021-10-21] MEDS: AMINO ACIDS/DEXT/LYTES 4.25-5% 2,000 ML IV SCH (17:20)
[2021-10-21 17:56] LABS: INR 1.1; PT Patient Result 11.8 SECS (10.5-12.0)
[2021-10-21] MEDS ORDERED: INSULIN GLARGINE 100 UNIT/ML SUBCUT SCH (21:00)
[2021-10-21] MEDS: BIMATOPROST 0.01% OPH SOLN 2.5 ML BOTTLE LEFT EYE SCH (21:08)
[2021-10-22] MEDS: INSULIN LISPRO 100 UNIT/ML SUBCUT SCH ×4 (00:54→18:14)
[2021-10-22] MEDS: TRANEXAMIC ACID 1,000 MG in SODIUM CHLORIDE 0.9% 100 ML IV SCH (02:23)
[2021-10-22] MEDS: MEROPENEM 500 MG in SODIUM CHLORIDE 0.9% 100 ML IV SCH ×4 (02:30→21:31)
[2021-10-22] MEDS: methylPREDNISolone SOD SUC 40 MG/1 ML VIAL IV SCH ×4 (03:23→21:27)
[2021-10-22 03:53] LABS: ABG Base Excess 3.8 MMOL/L (-2.5-2.5); ABG HCO3 27.9 MMOL/L (20-26); ABG Oxygen Saturation 99.9 % (95-100); ABG PH 7.445 (7.35-7.45); ABG TCO2 25.8 MMOL/L (23-27); Allen Test Positive; Pt O2 Delivery Device Ventilator
[2021-10-22 04:05] LABS: Hematocrit 27.5 VOL% (42.0-52.0); Hemoglobin 9.1 GM/DL (14.0-18.0); Immature Granulocytes % 1.5 %; Immature Granulocytes Absolute 0.04 #; Lymphocytes # 0.4 10*3/uL (1.4-4.0); Lymphocytes % 16.5 % (21.2-54.2); Mean Corpuscular HGB Conc 33.1 GM/DL (32-36); Monocytes % 4.6 % (1.7-12.7); NRBC # 0.07 10*3/uL; Neutrophils % 77.4 % (38.7-73.9); Red Blood Count 2.75 MC/CUMM (3.8-5.5); White Blood Count 2.6 T/CUMM (4-12)
[2021-10-22 04:10] LABS: Platelet Count 0 T/CUMM (130-400)
[2021-10-22 04:21] LABS: INR 1.1
[2021-10-22 04:25] LABS: Albumin 2.1 G/DL (3.4-5.0); Bilirubin,Total 2.9 MG/DL (0.20-1.00); Calcium 7.6 MG/DL (8.5-10.1); Osmolality,Calculated 307.7 MOS/KG (273-304); Potassium 4.4 MMOL/L (3.5-5.1); Total Protein 4.9 G/DL (6.4-8.2)
[2021-10-22 04:25] LABS: Lymphocytes 11 % (20-55); Nucleated Red Blood Cells 3 (0-5); Segmented Neutrophils 84 % (50-85); Total Cells Counted 100
[2021-10-22 04:26] LABS: Hypochromia 1+; Microcytosis 1+; Platelet Estimate Decreased
[2021-10-22] MEDS: PANTOPRAZOLE 40 MG VIAL IV SCH ×2 (08:37→21:28)
[2021-10-22] MEDS: FUROSEMIDE 40 MG/4 ML VIAL IV SCH ×2 (08:42→15:59)
[2021-10-22] MEDS: BACITRACIN OINT 0.9 GM PACK TOP SCH (08:52)
[2021-10-22] MEDS ORDERED: IMMUNE GLOBULIN 10% 20 GM, IMMUNE GLOBULIN 10% 10 GM in PREMIX 1 EACH IV ONE (09:06)
[2021-10-22] MEDS: NYSTATIN 500,000 UNIT/5 ML UDCUP SWISH/SWAL SCH ×4 (09:25→21:33)
[2021-10-22] MEDS: DORZOLAMIDE 2% OPH SOLN 10 ML BOTTLE LEFT EYE SCH ×3 (09:25→21:33)
[2021-10-22] MEDS: BRIMONIDINE 0.2% OPH SOLN 5 ML BOTTLE LEFT EYE SCH ×2 (09:25→21:33)
[2021-10-22] MEDS: FLUCONAZOLE INJ 100 MG/50 ML PREMIX IV SCH (12:44)
[2021-10-22] MEDS: hydrALAZINE 20 MG/1 ML VIAL IV PRN ×2 (13:37→21:30)
[2021-10-22] MEDS: AMINO ACIDS/DEXT/LYTES 4.25-5% 2,000 ML IV SCH (18:13)
[2021-10-22] MEDS ORDERED: INSULIN GLARGINE 100 UNIT/ML SUBCUT SCH (21:00)
[2021-10-22] MEDS: BIMATOPROST 0.01% OPH SOLN 2.5 ML BOTTLE LEFT EYE SCH (21:33)
[2021-10-23] MEDS: INSULIN LISPRO 100 UNIT/ML SUBCUT SCH ×5 (00:26→23:55)
[2021-10-23] MEDS: MEROPENEM 500 MG in SODIUM CHLORIDE 0.9% 100 ML IV SCH ×4 (03:00→20:25)
[2021-10-23 04:18] LABS: ABG Base Excess 3.1 MMOL/L (-2.5-2.5); ABG Oxygen Saturation 92.4 % (95-100); ABG PH 7.421 (7.35-7.45); ABG PO2 66.7 MM HG (80-95); ABG TCO2 29.3 MMOL/L (23-27); Allen Test Positive; Pt O2 Delivery Device Ventilator
[2021-10-23 04:25] LABS: Hematocrit 30.6 VOL% (42.0-52.0); Hemoglobin 9.5 GM/DL (14.0-18.0); Immature Granulocytes % 1.5 %; Immature Granulocytes Absolute 0.04 #; Lymphocytes # 0.5 10*3/uL (1.4-4.0); Lymphocytes % 19.6 % (21.2-54.2); Mean Corpuscular Volume 104.4 FL (87-102); Monocytes % 5.7 % (1.7-12.7); NRBC # 0.07 10*3/uL; Neutrophils % 73.2 % (38.7-73.9); Red Blood Count 2.93 MC/CUMM (3.8-5.5); Red Cell Distribution Width 22.8 % (9.3-17.3); White Blood Count 2.7 T/CUMM (4-12)
[2021-10-23 04:40] LABS: Albumin 2.2 G/DL (3.4-5.0); Bilirubin,Total 4.7 MG/DL (0.20-1.00); Calcium 7.5 MG/DL (8.5-10.1); Osmolality,Calculated 308.8 MOS/KG (273-304); Potassium 4.5 MMOL/L (3.5-5.1); Total Protein 5.8 G/DL (6.4-8.2)
[2021-10-23 04:43] LABS: Platelet Count 2 T/CUMM (130-400)
[2021-10-23 05:10] LABS: Lymphocytes 14 % (20-55); Nucleated Red Blood Cells 1 (0-5); Segmented Neutrophils 83 % (50-85); Total Cells Counted 100
[2021-10-23 05:11] LABS: Hypochromia 1+; Microcytosis 1+; Platelet Estimate Decreased
[2021-10-23] MEDS: methylPREDNISolone SOD SUC 40 MG/1 ML VIAL IV SCH ×4 (05:29→22:02)
[2021-10-23] MEDS: hydrALAZINE 20 MG/1 ML VIAL IV PRN ×2 (05:30→14:35)
[2021-10-23] MEDS: PANTOPRAZOLE 40 MG VIAL IV SCH ×2 (07:55→20:33)
[2021-10-23] MEDS: BRIMONIDINE 0.2% OPH SOLN 5 ML BOTTLE LEFT EYE SCH ×2 (07:55→20:30)
[2021-10-23] MEDS: FUROSEMIDE 40 MG/4 ML VIAL IV SCH (07:55)
[2021-10-23] MEDS: NYSTATIN 500,000 UNIT/5 ML UDCUP SWISH/SWAL SCH ×4 (08:05→20:25)
[2021-10-23] MEDS: DORZOLAMIDE 2% OPH SOLN 10 ML BOTTLE LEFT EYE SCH ×3 (08:05→20:30)
[2021-10-23] MEDS: BACITRACIN OINT 0.9 GM PACK TOP SCH (08:50)
[2021-10-23] MEDS: FLUCONAZOLE INJ 100 MG/50 ML PREMIX IV SCH (10:40)
[2021-10-23] MEDS ORDERED: diphenhydrAMINE 50 MG/1 ML VIAL IV ONE (11:00)
[2021-10-23] MEDS ORDERED: DEXAMETHASONE INJ 10 MG in SODIUM CHLORIDE 0.9% 50 ML IV ONE (11:00)
[2021-10-23 11:07] LABS: Allen Test Positive; Pt O2 Delivery Device Ventilator
[2021-10-23 11:08] LABS: ABG Base Excess 5.8 MMOL/L (-2.5-2.5); ABG HCO3 29.7 MMOL/L (20-26); ABG Oxygen Saturation 99.5 % (95-100); ABG PH 7.505 (7.35-7.45); ABG TCO2 26.3 MMOL/L (23-27)
[2021-10-23] MEDS ORDERED: RITUXIMAB-ABBS 500 MG, RITUXIMAB-ABBS 250 MG in SODIUM CHLORIDE 0.9% 675 ML IV ONE (11:30)
[2021-10-23] MEDS: AMINO ACIDS/DEXT/LYTES 4.25-5% 2,000 ML IV SCH (16:40)
[2021-10-23] MEDS: niCARdipine INJ 25 MG in SODIUM CHLORIDE 0.9% 240 ML IV PRN (19:20)
[2021-10-23] MEDS: INSULIN GLARGINE 100 UNIT/ML SUBCUT SCH (20:28)
[2021-10-23] MEDS: BIMATOPROST 0.01% OPH SOLN 2.5 ML BOTTLE LEFT EYE SCH (20:30)
[2021-10-23] MEDS ORDERED: LORazepam 2 MG/1 ML VIAL ONE (22:35)
[2021-10-24] MEDS: niCARdipine INJ 25 MG in SODIUM CHLORIDE 0.9% 240 ML IV PRN ×2 (00:03→08:25)
[2021-10-24] MEDS: INSULIN LISPRO 100 UNIT/ML SUBCUT SCH ×4 (00:04→18:55)
[2021-10-24] MEDS: MEROPENEM 500 MG in SODIUM CHLORIDE 0.9% 100 ML IV SCH ×4 (01:30→21:57)
[2021-10-24 03:57] LABS: ABG Base Excess 2.5 MMOL/L (-2.5-2.5); ABG PCO2 27.2 MM HG (35-48); ABG PH 7.563 (7.35-7.45); ABG PO2 68.2 MM HG (80-95); ABG TCO2 24.8 MMOL/L (23-27)
[2021-10-24 03:58] LABS: Allen Test Positive
[2021-10-24 04:40] LABS: Hemoglobin 10.5 GM/DL (14.0-18.0); Immature Granulocytes % 1.9 %; Immature Granulocytes Absolute 0.06 #; Lymphocytes # 0.6 10*3/uL (1.4-4.0); Lymphocytes % 19.6 % (21.2-54.2); Mean Corpuscular HGB Conc 31.8 GM/DL (32-36); Mean Corpuscular Volume 101.2 FL (87-102); Monocytes % 6.4 % (1.7-12.7); NRBC # 0.11 10*3/uL; Neutrophils % 72.1 % (38.7-73.9); Red Blood Count 3.26 MC/CUMM (3.8-5.5); Red Cell Distribution Width 23.1 % (9.3-17.3); White Blood Count 3.1 T/CUMM (4-12)
[2021-10-24 04:45] LABS: Platelet Count 3 T/CUMM (130-400)
[2021-10-24] MEDS: methylPREDNISolone SOD SUC 40 MG/1 ML VIAL IV SCH ×4 (04:54→21:58)
[2021-10-24 05:03] LABS: Albumin 2.4 G/DL (3.4-5.0); Bilirubin,Total 9.2 MG/DL (0.20-1.00); Calcium 8.3 MG/DL (8.5-10.1); Potassium 4.6 MMOL/L (3.5-5.1); Total Protein 5.8 G/DL (6.4-8.2)
[2021-10-24 05:19] LABS: Hypochromia Slight; Lymphocytes 18 % (20-55); Nucleated Red Blood Cells 3 (0-5); Segmented Neutrophils 79 % (50-85); Total Cells Counted 100
[2021-10-24 05:20] LABS: Anisocytosis 1+; Microcytosis 1+; Ovalocytes Slight; Platelet Estimate Decreased; Polychromasia Slight
[2021-10-24] MEDS: NYSTATIN 500,000 UNIT/5 ML UDCUP SWISH/SWAL SCH ×4 (08:01→21:58)
[2021-10-24] MEDS: BRIMONIDINE 0.2% OPH SOLN 5 ML BOTTLE LEFT EYE SCH ×2 (08:19→21:59)
[2021-10-24] MEDS: BACITRACIN OINT 0.9 GM PACK TOP SCH (08:19)
[2021-10-24] MEDS: DORZOLAMIDE 2% OPH SOLN 10 ML BOTTLE LEFT EYE SCH ×3 (08:20→21:59)
[2021-10-24] MEDS: FUROSEMIDE 40 MG/4 ML VIAL IV SCH (08:20)
[2021-10-24] MEDS: PANTOPRAZOLE 40 MG VIAL IV SCH ×2 (08:20→22:01)
[2021-10-24] MEDS: FLUCONAZOLE INJ 100 MG/50 ML PREMIX IV SCH (09:04)
[2021-10-24] MEDS ORDERED: romiPLOStim 125 MCG VIAL SUBCUT ONE (10:00)
[2021-10-24] MEDS: lisinopriL 20 MG TABLET PO SCH (15:25)
[2021-10-24] MEDS: AMINO ACIDS/DEXT/LYTES 4.25-5% 2,000 ML IV SCH (16:08)
[2021-10-24] MEDS: INSULIN GLARGINE 100 UNIT/ML SUBCUT SCH (21:58)
[2021-10-24] MEDS: BIMATOPROST 0.01% OPH SOLN 2.5 ML BOTTLE LEFT EYE SCH (21:59)
[2021-10-25] MEDS: MEROPENEM 500 MG in SODIUM CHLORIDE 0.9% 100 ML IV SCH ×4 (02:38→20:54)
[2021-10-25] MEDS: INSULIN LISPRO 100 UNIT/ML SUBCUT SCH ×4 (02:38→20:12)
[2021-10-25] MEDS: methylPREDNISolone SOD SUC 40 MG/1 ML VIAL IV SCH ×5 (03:00→21:26)
[2021-10-25 05:08] LABS: Basophils % 0.4 % (0.0-0.8); Hematocrit 31.2 VOL% (42.0-52.0); Hemoglobin 9.9 GM/DL (14.0-18.0); Immature Granulocytes % 5.1 %; Immature Granulocytes Absolute 0.14 #; Lymphocytes # 0.6 10*3/uL (1.4-4.0); Lymphocytes % 22.4 % (21.2-54.2); Mean Corpuscular HGB Conc 31.7 GM/DL (32-36); Mean Corpuscular Volume 102.3 FL (87-102); Monocytes % 6.5 % (1.7-12.7); NRBC # 0.25 10*3/uL; Neutrophils % 65.6 % (38.7-73.9); Red Blood Count 3.05 MC/CUMM (3.8-5.5); Red Cell Distribution Width 23.6 % (9.3-17.3); White Blood Count 2.8 T/CUMM (4-12)
[2021-10-25 05:13] LABS: Platelet Count 7 T/CUMM (130-400)
[2021-10-25 05:33] LABS: Albumin 2.3 G/DL (3.4-5.0); Calcium 8.7 MG/DL (8.5-10.1); Osmolality,Calculated 314.6 MOS/KG (273-304); Potassium 4.4 MMOL/L (3.5-5.1); Total Protein 5.5 G/DL (6.4-8.2)
[2021-10-25 06:27] LABS: Band Neutrophils 5 % (0-10); Eosinophils 1 % (0-10); Hypochromia 1+; Lymphocytes 21 % (20-55); Metamyelocytes 1 %; Nucleated Red Blood Cells 5 (0-5); Polychromasia Slight; Segmented Neutrophils 69 % (50-85); Total Cells Counted 100
[2021-10-25 06:28] LABS: Microcytosis 1+; Ovalocytes Slight; Platelet Estimate Decreased; Target Cells Slight
[2021-10-25] MEDS ORDERED: lisinopriL 20 MG TABLET PO SCH (09:00)
[2021-10-25] MEDS: BRIMONIDINE 0.2% OPH SOLN 5 ML BOTTLE LEFT EYE SCH ×2 (10:08→20:44)
[2021-10-25] MEDS: NYSTATIN 500,000 UNIT/5 ML UDCUP SWISH/SWAL SCH ×4 (10:08→21:15)
[2021-10-25] MEDS: PANTOPRAZOLE 40 MG VIAL IV SCH ×2 (10:10→20:52)
[2021-10-25] MEDS: FUROSEMIDE 40 MG/4 ML VIAL IV SCH (10:10)
[2021-10-25] MEDS: lisinopriL 20 MG TABLET PO SCH (10:11)
[2021-10-25] MEDS: BACITRACIN OINT 0.9 GM PACK TOP SCH (10:14)
[2021-10-25] MEDS: DORZOLAMIDE 2% OPH SOLN 10 ML BOTTLE LEFT EYE SCH ×3 (10:14→20:44)
[2021-10-25] MEDS: FLUCONAZOLE INJ 100 MG/50 ML PREMIX IV SCH (11:20)
[2021-10-25] MEDS ORDERED: MAGNESIUM HYDROXIDE SUSP 30 ML UDCUP PO PRN (19:01)
[2021-10-25] MEDS ORDERED: MYLANTA/LIDO VISC 2:1 300 ML BOTTLE SWISH/SPIT PRN (19:01)
[2021-10-25] MEDS ORDERED: diphenhydrAMINE CAP 25 MG CAPSULE PO PRN (19:01)
[2021-10-25] MEDS ORDERED: ALUMINUM/MAGNES/SIMETH MAX STR 30 ML UDCUP PO PRN (19:01)
[2021-10-25] MEDS ORDERED: PROMETHAZINE INJ 25 MG in SODIUM CHLORIDE 0.9% 50 ML IV PRN (19:01)
[2021-10-25] MEDS ORDERED: LOPERAMIDE 2 MG CAPSULE PO PRN ×2 (19:01)
[2021-10-25] MEDS ORDERED: ONDANSETRON 4 MG/2 ML VIAL IV PRN (19:01)
[2021-10-25] MEDS ORDERED: guaiFENesin 200 MG/10 ML UDCUP PO PRN (19:01)
[2021-10-25] MEDS ORDERED: MYLANTA/LIDO VISC 2:1 300 ML BOTTLE SWISH/SWAL PRN (19:01)
[2021-10-25] MEDS ORDERED: ACETAMINOPHEN 325 MG TABLET PO PRN (19:01)
[2021-10-25] MEDS ORDERED: LACTULOSE 20 GM/30 ML UDCUP PO PRN (19:01)
[2021-10-25] MEDS: AMINO ACIDS/DEXT/LYTES 4.25-5% 2,000 ML IV SCH (20:06)
[2021-10-25] MEDS: BIMATOPROST 0.01% OPH SOLN 2.5 ML BOTTLE LEFT EYE SCH (20:43)
[2021-10-25] MEDS: DOXEPIN 25 MG CAPSULE PO SCH (20:44)
[2021-10-25] MEDS: INSULIN GLARGINE 100 UNIT/ML SUBCUT SCH (20:44)
[2021-10-25] MEDS: TEMAZEPAM 7.5 MG CAPSULE PO PRN (20:53)
[2021-10-26] MEDS: INSULIN LISPRO 100 UNIT/ML SUBCUT SCH ×4 (00:48→20:49)
[2021-10-26] MEDS: MEROPENEM 500 MG in SODIUM CHLORIDE 0.9% 100 ML IV SCH ×4 (03:04→20:05)
[2021-10-26] MEDS: methylPREDNISolone SOD SUC 40 MG/1 ML VIAL IV SCH ×4 (03:11→21:50)
[2021-10-26 06:51] LABS: Hematocrit 29.5 VOL% (42.0-52.0); Hemoglobin 9.1 GM/DL (14.0-18.0); Immature Granulocytes % 1.5 %; Immature Granulocytes Absolute 0.04 #; Lymphocytes # 0.5 10*3/uL (1.4-4.0); Lymphocytes % 19.7 % (21.2-54.2); Mean Corpuscular HGB Conc 30.8 GM/DL (32-36); Mean Corpuscular Volume 105.4 FL (87-102); Monocytes % 6.1 % (1.7-12.7); NRBC # 0.27 10*3/uL; Neutrophils % 72.7 % (38.7-73.9); Red Cell Distribution Width 23.5 % (9.3-17.3); White Blood Count 2.6 T/CUMM (4-12)
[2021-10-26 06:53] LABS: Platelet Count 1 T/CUMM (130-400)
[2021-10-26 07:08] LABS: Albumin 2.2 G/DL (3.4-5.0); Bilirubin,Total 3.8 MG/DL (0.20-1.00); Calcium 8.4 MG/DL (8.5-10.1); Potassium 4.3 MMOL/L (3.5-5.1); Total Protein 5.2 G/DL (6.4-8.2)
[2021-10-26 07:25] LABS: Anisocytosis 1+; Band Neutrophils 15 % (0-10); Lymphocytes 19 % (20-55); Macrocytosis 1+; Nucleated Red Blood Cells 16 (0-5); Ovalocytes Few; Platelet Estimate Decreased; Segmented Neutrophils 63 % (50-85); Tear Drop Cells Few; Total Cells Counted 100
[2021-10-26] MEDS: DORZOLAMIDE 2% OPH SOLN 10 ML BOTTLE LEFT EYE SCH ×3 (09:36→20:00)
[2021-10-26] MEDS: BRIMONIDINE 0.2% OPH SOLN 5 ML BOTTLE LEFT EYE SCH ×2 (09:36→20:00)
[2021-10-26] MEDS: lisinopriL 20 MG TABLET PO SCH (10:01)
[2021-10-26] MEDS: FUROSEMIDE 40 MG/4 ML VIAL IV SCH (10:04)
[2021-10-26] MEDS: BACITRACIN OINT 0.9 GM PACK TOP SCH (10:04)
[2021-10-26] MEDS: PANTOPRAZOLE 40 MG VIAL IV SCH ×2 (10:08→20:03)
[2021-10-26] MEDS: FLUCONAZOLE INJ 100 MG/50 ML PREMIX IV SCH (11:06)
[2021-10-26] MEDS: traMADol 50 MG TABLET PO PRN (11:31)
[2021-10-26] MEDS: NYSTATIN 500,000 UNIT/5 ML UDCUP SWISH/SWAL SCH ×4 (11:39→20:50)
[2021-10-26] MEDS: BIMATOPROST 0.01% OPH SOLN 2.5 ML BOTTLE LEFT EYE SCH (20:00)
[2021-10-26] MEDS: AMINO ACIDS/DEXT/LYTES 4.25-5% 2,000 ML IV SCH (20:14)
[2021-10-26] MEDS: TEMAZEPAM 7.5 MG CAPSULE PO PRN (20:21)
[2021-10-26] MEDS: INSULIN GLARGINE 100 UNIT/ML SUBCUT SCH (20:25)
[2021-10-26] MEDS: DOXEPIN 25 MG CAPSULE PO SCH (20:50)
[2021-10-27] MEDS: INSULIN LISPRO 100 UNIT/ML SUBCUT SCH ×5 (00:22→18:30)
[2021-10-27] MEDS: traMADol 50 MG TABLET PO PRN (02:31)
[2021-10-27] MEDS: MEROPENEM 500 MG in SODIUM CHLORIDE 0.9% 100 ML IV SCH ×4 (02:35→20:14)
[2021-10-27] MEDS: methylPREDNISolone SOD SUC 40 MG/1 ML VIAL IV SCH ×4 (03:06→22:13)
[2021-10-27 06:00] LABS: Hematocrit 30.3 VOL% (42.0-52.0); Hemoglobin 9.3 GM/DL (14.0-18.0); Immature Granulocytes % 1.5 %; Immature Granulocytes Absolute 0.06 #; Lymphocytes # 0.6 10*3/uL (1.4-4.0); Mean Corpuscular HGB Conc 30.7 GM/DL (32-36); Mean Corpuscular Volume 105.2 FL (87-102); NRBC # 0.29 10*3/uL; Neutrophils % 78.5 % (38.7-73.9); Red Blood Count 2.88 MC/CUMM (3.8-5.5); Red Cell Distribution Width 23.3 % (9.3-17.3)
[2021-10-27 06:04] LABS: Platelet Count 2 T/CUMM (130-400)
[2021-10-27 06:19] LABS: Albumin 1.8 G/DL (3.4-5.0); Bilirubin,Total 3.4 MG/DL (0.20-1.00); Calcium 7.9 MG/DL (8.5-10.1); Osmolality,Calculated 322.7 MOS/KG (273-304); Potassium 4.3 MMOL/L (3.5-5.1); Total Protein 4.6 G/DL (6.4-8.2)
[2021-10-27 06:43] LABS: Anisocytosis 2+; Band Neutrophils 24 % (0-10); Lymphocytes 9 % (20-55); Macrocytosis 1+; Metamyelocytes 1 %; Nucleated Red Blood Cells 10 (0-5); Platelet Estimate Decreased; Segmented Neutrophils 64 % (50-85); Total Cells Counted 100
[2021-10-27 06:44] LABS: Polychromasia Slight; Tear Drop Cells Few
[2021-10-27] MEDS ORDERED: SODIUM CHLORIDE 0.45% 1,000 ML IV SCH (08:30)
[2021-10-27] MEDS: ALPRAZolam 0.25 MG TABLET PO PRN ×2 (08:58→19:36)
[2021-10-27] MEDS: lisinopriL 20 MG TABLET PO SCH (08:58)
[2021-10-27] MEDS: PANTOPRAZOLE 40 MG VIAL IV SCH ×2 (09:07→20:14)
[2021-10-27] MEDS: FUROSEMIDE 40 MG/4 ML VIAL IV SCH (09:07)
[2021-10-27] MEDS: BACITRACIN OINT 0.9 GM PACK TOP SCH (09:14)
[2021-10-27] MEDS: LORazepam 2 MG/1 ML VIAL IV PRN (10:19)
[2021-10-27] MEDS: FLUCONAZOLE INJ 100 MG/50 ML PREMIX IV SCH (10:19)
[2021-10-27] MEDS: BRIMONIDINE 0.2% OPH SOLN 5 ML BOTTLE LEFT EYE SCH ×2 (10:20→20:10)
[2021-10-27] MEDS: NYSTATIN 500,000 UNIT/5 ML UDCUP SWISH/SWAL SCH ×4 (10:20→20:27)
[2021-10-27] MEDS: DORZOLAMIDE 2% OPH SOLN 10 ML BOTTLE LEFT EYE SCH ×3 (10:21→20:10)
[2021-10-27] MEDS ORDERED: IMMUNE GLOBULIN 10% 20 GM in PREMIX 1 EACH IV ONE (11:16)
[2021-10-27] MEDS: BIMATOPROST 0.01% OPH SOLN 2.5 ML BOTTLE LEFT EYE SCH (20:10)
[2021-10-27] MEDS: INSULIN GLARGINE 100 UNIT/ML SUBCUT SCH (20:11)
[2021-10-27] MEDS: AMINO ACIDS/DEXT/LYTES 4.25-5% 2,000 ML IV SCH (20:24)
[2021-10-27] MEDS: DOXEPIN 25 MG CAPSULE PO SCH (20:27)
[2021-10-27] MEDS: TEMAZEPAM 7.5 MG CAPSULE PO PRN (22:15)
[2021-10-28] MEDS: INSULIN LISPRO 100 UNIT/ML SUBCUT SCH ×4 (00:02→18:13)
[2021-10-28] MEDS: LORazepam 2 MG/1 ML VIAL IV PRN ×2 (00:24→09:22)
[2021-10-28] MEDS ORDERED: FUROSEMIDE 40 MG/4 ML VIAL IV ONE (01:02)
[2021-10-28] MEDS: MEROPENEM 500 MG in SODIUM CHLORIDE 0.9% 100 ML IV SCH ×4 (01:21→22:47)
[2021-10-28] MEDS ORDERED: METOPROLOL TARTRATE 5 MG/5 ML VIAL IV ONE (02:29)
[2021-10-28] MEDS: methylPREDNISolone SOD SUC 40 MG/1 ML VIAL IV SCH ×4 (03:37→21:34)
[2021-10-28 05:16] LABS: Albumin 1.3 G/DL (3.4-5.0); Bilirubin,Total 3.2 MG/DL (0.20-1.00); Calcium 7.8 MG/DL (8.5-10.1); Osmolality,Calculated 316.3 MOS/KG (273-304); Potassium 4.4 MMOL/L (3.5-5.1); Total Protein 4.8 G/DL (6.4-8.2)
[2021-10-28 06:14] LABS: Basophils % 0.2 % (0.0-0.8); Hematocrit 28.9 VOL% (42.0-52.0); Hemoglobin 8.8 GM/DL (14.0-18.0); Immature Granulocytes % 0.9 %; Immature Granulocytes Absolute 0.05 #; Lymphocytes # 0.7 10*3/uL (1.4-4.0); Lymphocytes % 11.9 % (21.2-54.2); Mean Corpuscular HGB Conc 30.4 GM/DL (32-36); Monocytes % 2.9 % (1.7-12.7); Neutrophils % 84.1 % (38.7-73.9); Red Cell Distribution Width 23.7 % (9.3-17.3); White Blood Count 5.5 T/CUMM (4-12)
[2021-10-28 06:27] LABS: Platelet Count 1 T/CUMM (130-400)
[2021-10-28 06:36] LABS: Band Neutrophils 3 % (0-10); Lymphocytes 9 % (20-55); Nucleated Red Blood Cells 10 (0-5); Platelet Estimate Decreased; Segmented Neutrophils 86 % (50-85); Total Cells Counted 100
[2021-10-28 06:37] LABS: Hypochromia 1+; Microcytosis 1+
[2021-10-28] MEDS: ALPRAZolam 0.25 MG TABLET PO PRN (07:58)
[2021-10-28] MEDS: FUROSEMIDE 40 MG/4 ML VIAL IV SCH (08:16)
[2021-10-28] MEDS: NYSTATIN 500,000 UNIT/5 ML UDCUP SWISH/SWAL SCH ×4 (08:17→22:49)
[2021-10-28] MEDS: lisinopriL 20 MG TABLET PO SCH (08:17)
[2021-10-28] MEDS: PANTOPRAZOLE 40 MG VIAL IV SCH ×2 (08:18→21:34)
[2021-10-28] MEDS: BACITRACIN OINT 0.9 GM PACK TOP SCH (09:21)
[2021-10-28] MEDS: BRIMONIDINE 0.2% OPH SOLN 5 ML BOTTLE LEFT EYE SCH ×2 (09:23→21:34)
[2021-10-28] MEDS: DORZOLAMIDE 2% OPH SOLN 10 ML BOTTLE LEFT EYE SCH ×3 (09:24→21:34)
[2021-10-28] MEDS: [UNRECOGNIZED DRUG - OTHER] PO SCH ×2 (11:35→22:48)
[2021-10-28] MEDS: FLUCONAZOLE INJ 100 MG/50 ML PREMIX IV SCH (12:00)
[2021-10-28] MEDS ORDERED: FLUCONAZOLE INJ 100 MG/50 ML PREMIX IV SCH (13:00)
[2021-10-28] MEDS ORDERED: MORPHINE 2 MG/1 ML SYRINGE IV PRN (13:39)
[2021-10-28] MEDS: AMINO ACIDS/DEXT/LYTES 4.25-5% 2,000 ML IV SCH (18:12)
[2021-10-28] MEDS: INSULIN GLARGINE 100 UNIT/ML SUBCUT SCH (21:34)
[2021-10-28] MEDS: BIMATOPROST 0.01% OPH SOLN 2.5 ML BOTTLE LEFT EYE SCH (21:34)
[2021-10-28] MEDS: DOXEPIN 25 MG CAPSULE PO SCH (22:50)
[2021-10-29] MEDS: INSULIN LISPRO 100 UNIT/ML SUBCUT SCH ×2 (03:04→08:59)
[2021-10-29] MEDS: MEROPENEM 500 MG in SODIUM CHLORIDE 0.9% 100 ML IV SCH ×2 (03:04→09:00)
[2021-10-29] MEDS ORDERED: DILTIAZEM INJ 100 MG in SODIUM CHLORIDE 0.9% 100 ML IV SCH (05:00)
[2021-10-29 07:38] VITALS: BP 70/52
[2021-10-29] MEDS: methylPREDNISolone SOD SUC 40 MG/1 ML VIAL IV SCH ×2 (08:59→11:09)
[2021-10-29] MEDS: BRIMONIDINE 0.2% OPH SOLN 5 ML BOTTLE LEFT EYE SCH (09:01)
[2021-10-29] MEDS: FUROSEMIDE 40 MG/4 ML VIAL IV SCH (09:02)
[2021-10-29] MEDS: NYSTATIN 500,000 UNIT/5 ML UDCUP SWISH/SWAL SCH (09:02)
[2021-10-29] MEDS: PANTOPRAZOLE 40 MG VIAL IV SCH (09:02)
[2021-10-29] MEDS: BACITRACIN OINT 0.9 GM PACK TOP SCH (09:02)
[2021-10-29] MEDS: [UNRECOGNIZED DRUG - OTHER] PO SCH (09:02)
[2021-10-29] MEDS: DORZOLAMIDE 2% OPH SOLN 10 ML BOTTLE LEFT EYE SCH (09:03)
== END 2021-10-29 05:40 | disposition expired | DRG 377 ==
LOC: EDBD → EDUNIT# → N.ED 13:35 → N.EDINP 13:50 → SUATTDRO 13:50 → N.3E 18:06 → N.TELES 09-30 18:30 → N.ICU 10-18 00:02 → N.TELES 10-24 17:24
PROVIDERS: ADMIT Family Medicine; ATTEND Family Medicine